=== PATIENT | female | born 1955 ===

== ENCOUNTER 2019-10-28 21:54 | Inpatient (IN) | payer OTHER ==
[~2019-10-28] VITALS: Ht 160 cm; Wt 75.0 kg
[2019-10-28] MEDS ORDERED: DEPAKOTE DR500 MG PO (22:19)
[2019-10-28] MEDS ORDERED: SPS 15 GM/15 GM/60 M PO (22:20)
[2019-10-28] MEDS ORDERED: LIPITOR40 MG PO (22:22)
[2019-10-28] MEDS ORDERED: METFORMIN HYD1000 MG PO (22:22)
[2019-10-28] MEDS ORDERED: COLCHICINE0.6 M1 PO (22:23)
[2019-10-29] MEDS ORDERED: LITHIUM CARBON300 MG PO (00:48)
[2019-10-29] MEDS ORDERED: CLONAZEPAM0.5 M2 PO (00:48)
[2019-10-29] MEDS ORDERED: TRAZODONE100 MG PO (00:49)
[2019-10-29] MEDS ORDERED: BRIMONIDINE TART5 ML OPH (00:50)
[2019-10-29] MEDS ORDERED: 'CLONIDINE0.1 MG PO (00:50)
[2019-10-29] MEDS ORDERED: VITAMIN D250 MCG PO (00:53)
[2019-10-29] MEDS ORDERED: LABETALOL HCL200 MG PO (00:54)
[2019-10-29] MEDS ORDERED: LASIX20 MG PO (00:55)
[2019-10-29] MEDS ORDERED: JANUVIA100 MG PO (00:56)
[2019-10-29] MEDS ORDERED: DEPAKOTE250 MG PO (00:57)
--- NOTE | 2019-10-29 02:00 | NUR ---
LORI THURSTON a 64 year old F admitted via stretcher from the ADMITTING as a emergency 72 hr. hold admission. Arrived on unit at 0200AM. ALLERGIES: IBUPROFEN, JAVAN INHIBITOR,LATUDA. Vital signs are: 98.6-110-18 156/79. CLIENT IS PINK SLIPPED AND REFUSED TO REVIEW OR SIGN ANY OTHER PAPERS. IN : Authorization For The Release of Medical Information, Clothing List, Consent to Voluntary Admission and Hospitalization, Consent and Release Forms/Receipt of Rights, Acknowledgement of Advance Directive Information, Behavioral Health Consent Form, and Informed Consent of Medications. Admitted under the services of Dr. HARJIT REYES,[facility]. A search was conducted and hazardous articles were removed. Client was oriented to the unit. GREG GONZALEZ
--- NOTE | 2019-10-29 02:00 | NUR ---
LORI THURSTON a 64 year old F admitted via stretcher from the ADMITTING as a emergency 72 hr. hold admission. Arrived on unit at 0200AM. ALLERGIES: IBUPROPHEN, JAVAN INHIBITORS, LATUDA. Vital signs are: 98.6-110-18 156/79. The client signed the following forms with stated understanding: Authorization For The Release of Medical Information, Clothing List, Consent to Voluntary Admission and Hospitalization, Consent and Release Forms/Receipt of Rights, Acknowledgement of Advance Directive Information, Behavioral Health Consent Form, and Informed Consent of Medications. Admitted under the services of Dr. HARJIT REYES,[facility]. A search was conducted and hazardous articles were removed. Client was oriented to the unit. GREG GONZALEZ
[2019-10-29] MEDS ORDERED: TIMOLOL MALEATE5 M7 OP (02:12)
[2019-10-29] MEDS ORDERED: OMEGA-31000 M1 PO (02:16)
[2019-10-29] MEDS ORDERED: LANTUS SOL100 UNIT/1 SC (02:17)
[2019-10-29] MEDS ORDERED: AMMONIUM LACTA227 GM T (02:18)
[2019-10-29] MEDS ORDERED: XALATAN 0.005%2.5 ML OU (02:20)
[2019-10-29] MEDS ORDERED: RISPERDAL1 M1 PO (02:22)
[2019-10-29] MEDS ORDERED: RISPERDAL CON12.5 MG IM (02:23)
[2019-10-29 02:24] VITALS: BP 156/79
--- NOTE | 2019-10-29 02:28 | NUR ---
LORI THURSTON a 64 year old F admitted via stretcher from the ADMITTING as a emergency 72 hr. hold admission. Arrived on unit at 0200AM. ALLERGIES: IBUPROPHEN, JAVAN INHIBITORS, LATUDA. Vital signs are: 98.6-110-18 156/79. The client signed the following forms with stated understanding: Authorization For The Release of Medical Information, Clothing List, Consent to Voluntary Admission and Hospitalization, Consent and Release Forms/Receipt of Rights, Acknowledgement of Advance Directive Information, Behavioral Health Consent Form, and Informed Consent of Medications. Admitted under the services of Dr. HARJIT REYES,[facility]. A search was conducted and hazardous articles were removed. Client was oriented to the unit. GREG GONZALEZ
--- NOTE | 2019-10-29 02:30 | NUR ---
DR Ana RYDER NOTIFIED OF ADMISSION
[2019-10-29 02:45] VITALS: BP 156/79
--- NOTE | 2019-10-29 02:51 | NUR ---
LORI THURSTON [id number] Please refer to the physician's history and physical for past medical history, comorbid conditions, and allergies. Diagnosis: SCHIZOEFFECTIVE DISORDER Scott Score: 22,LOW OR NO RISK WOUND DESCRIPTIONS: Nurse caring for patient states that she had wraps to bilateral lower extremities and refused for them to be removed and only wanted the doctor to look at them. This nurse went to evaluate patient and patient stated I was able to remove the dressings. After removal of dressing to bilateral lower extremities 4 wounds noted at this time. Wound Number: 1 Location of the wound: medial aspect of left lower extremity Thickness: Full Size: 2.2cm x 2.5cm x 0.1cm Tunneling: none Undermining: none Sinus Tract: none Presence of Exudate: Serosanguineous Amount: Light Color: Red Odor: None Periwound Skin Appearance: Edema Wound edges: approximated Pain (associated with wound): none at time of assessment How does patient state this happened? pt states she has had these for a while and uses cream on them Wound Number: 2 Location of the wound: lateral aspect of right lower extremity (right side) Type of wound: Thickness: Full Size: 0.9cm x 1.5cm x 0.1cm Tunneling: none Undermining: none Sinus Tract: none Presence of Exudate: Serosanguineous Amount: Light Color: Red, yellow Odor: None Periwound Skin Appearance: Edema Wound edges: approximated Pain (associated with wound): none at time of assessment How does patient state this happened? pt states she has had these for a while and uses cream on them Wound Number: 3 Location of the wound: lateral aspect of right lower extremity (middle wound) Thickness: Full Size: 1.5cm x 0.6cm x 0.1cm Tunneling: none Undermining: none Sinus Tract: none Presence of Exudate: Serosanguineous Amount: Light Color: Red, yellow Odor: None Periwound Skin Appearance: Edema Wound edges: approximated Pain (associated with wound): none at time of assessment How does patient state this happened? pt states she has had these for a while Wound Number: 4 Location of the wound: lateral aspect of right lower extremity (left wound) Thickness: Full Size: 0.7cm x 0.5cm x 0.1cm Tunneling: none Undermining: none Sinus Tract: none Presence of Exudate: Serosanguineous Amount: Light Color: Red, yellow Odor: None Periwound Skin Appearance: Edema Wound edges: approximated Pain (associated with wound): none at time of assessment How does patient state this happened? pt states she has had these for a while and uses cream on them and uses cream on them Surface the patient is resting on: Proform SKIN PREVENTION RECOMMENDATION: 1. Pressure redistribution support surface as appropriate 2. Elevate heels 3. Remove boots/TEDS every shift and reapply 4. Head of bed 30 degrees as tolerated 5. Assess nutrition and hydration 6. Manage moisture 7. Avoid the use of containment devices while in bed 8. Use absorptive products on surfaces limit layers of linens on bed 9. Turn and reposition every 1-2 hours in bed and every 1 hour in chair as tolerated 10. Weight shifts every 15 minutes while up in chair 11. Offloading with pillows or device to keep heels elevated off bed 12. Monitor skin at least every shift 13. Inspect under medical devices twice a day WOUND TREATMENT RECOMMENDATIONS: Full thickness guidelines: Cleanse areas to right and left lower extremity with nss and apply sureprep around the wound therahoney to wound bed and cover with optifoam gentle every 2 days and prn for soiling. Heel raiser pro boots to bilateral feet while in bed. Wheelcushion when oob for prevention Cleanse periarea and buttocks with soap and water and apply hydraguard every shift and prn for soiling for prevention. Venous and arterial studies of bilateral lower extremites. Consult podiatry for possible debridement if studies allow.
[2019-10-29 03:10] LABS: BACTERIA TRACE; BILIRUBIN NEGATIVE (NEGATIVE); BLOOD NEGATIVE (NEGATIVE); CLARITY CLEAR (CLEAR); COLOR YELLOW (YELLOW); GLUCOSE NEGATIVE (NEGATIVE); KETONE NEGATIVE (NEGATIVE); LEUKO ESTERASE TRACE (NEGATIVE); NITRITE NEGATIVE (NEGATIVE); UROBILINOGEN 0.2 E.U./dl (0.2-1.0)
--- NOTE | 2019-10-29 03:28 | NUR ---
DR RYDER ON UNIT TO SEE PT FOR MEDICAL CONSULT
--- NOTE | 2019-10-29 03:31 | NUR ---
PT ELATED ON ARRIVAL TO UNIT. SPEAKING TURKISH, BELARUSIAN & BELARUSIAN. STATED TURKISH IS HER MAIN LANGUAGE. FLIGHT OF IDEAS, NONSENSICAL SPEECH, CURSING. ALERT TO PERSON, MONTH, YEAR & STATED NAME OF PRESIDENT IS "KORIN BLACK". PT STATED SHE WANTS TO GET OUT OF HERE. WHILE GETTING OFF OF THE STRETCHER, SHE STATED THAT SHE IS READY TO DANCE ALL NIGHT & PUT HER HANDS IN THE AIR & DID DANCE MOVEMENTS. PT HAD SEVERAL RINGS, BRACELETS & NECKLACES ON & REQUIRED MUCH ENCOURAGEMENT TO REMOVE THEM. SHE MADE CLENCHED FISTS & STATED SHE WAS NOT TAKING HER JEWELRY OFF. MUCH PROMPTING REQUIRED. PT DID REMOVE SOME OF JEWELRY. SHE DID KEEP 4 RINGS & 1 BRACELET ON. SHE WAS NOTED TO HAVE BOTH OF HER LOWER LEGS WRAPPED & REFUSED TO LET THIS RN UNWRAP THEM FOR ASSESSMENT. SHE STATED THAT SHE WANTED A DR. TO LOOK AT THEM. WAS CONTINENT OF URINE PRIOR TO GOING TO BED.
--- NOTE | 2019-10-29 05:29 | NUR ---
Dr. Shay notified of wound care recommendations.
--- NOTE | 2019-10-29 06:34 | NUR ---
AM BEDSIDE GLUCOSE 203
[2019-10-29 06:38] LABS: BASO % 0.3 % (0.0-1.0); EOS # 0.2 10*3/uL (0.0-0.4); EOS % 3.4 % (1.0-4.0); LYMPH # 2.5 10*3/uL (1.3-4.4); LYMPH % 38.7 % (27.0-41.0); MEAN CELL VOLUME 83.5 fl (81.0-99.0); MEAN CORPUSCULAR HGB 27.2 pg (27.0-31.0); MEAN CORPUSCULAR HGB CONC 32.6 g/dl (33.0-37.0); MEAN PLATELET VOLUME 8.8 fl (9.6-12.3); MONO # 0.5 10*3/uL (0.1-1.0); NEUT # 3.2 10*3/uL (2.3-7.9); NEUT % 49.4 % (47.0-73.0); PLATELET COUNT AUTOMATED 240 10*3/uL (130-400); RED BLOOD COUNT 4.19 10*6/uL (4.10-5.10); WHITE BLOOD COUNT 6.5 10*3/uL (4.8-10.8)
[2019-10-29 06:54] LABS: ALBUMIN 3.1 gm/dl (3.1-4.5); BUN 16 mg/dl (7-24); CHLORIDE 106 mmol/L (98-107); HDL CHOLESTEROL 68 mg/dl (40-60); POTASSIUM 4.9 mmol/L (3.5-5.1); SODIUM 138 mmol/L (136-145)
[2019-10-29 07:06] LABS: ALKALINE PHOSPHATASE 76 U/L (45-117); CHOLESTEROL 187 mg/dL (<200); CREATININE 0.89 mg/dL (0.55-1.02); LDL CHOLESTEROL 100 mg/dL (9-159); SGOT/AST 15 IU/L (3-35); SGPT/ALT 22 U/L (12-78); TOTAL PROTEIN 7.1 gm/dL (6.4-8.2); TRIGLYCERIDES 96 mg/dl (<150); VLDL CHOLESTEROL 19 mg/dL (6-40)
[2019-10-29 07:52] VITALS: BP 146/73
[2019-10-29 08:08] LABS: VITAMIN D, 25-HYDROXY 71.2 ng/mL (30-100)
--- NOTE | 2019-10-29 08:21 | NUR ---
Patient eating breakfast in dining room with peers. Respirations easy and regular. Vital signs stable. No overt distress. MELITA HODGES & updated on pt progress.
--- NOTE | 2019-10-29 08:30 | NUR ---
Treatment Plan meeting was held via telephone with Dr. Chiu, DANIAL Lao, HELEN, PROVIDER NETWORK MANAGER-S and Jet Dyeing Machine Operator. Plan for discharge Next week. Pt. came to [facility] from Home with Mother.
--- NOTE | 2019-10-29 09:20 | NUR ---
PHYSICAL THERAPY Physical Therapy evaluation completed on 3N with full evaluation to follow. Low complexity PT evaluation per chart review and evaluation, [id number]. Recommend physical therapy per plan of care and Home health with 24hr care and assist upon discharge. Thank you for this referral. Stephanie Scott,PT,DPT
--- NOTE | 2019-10-29 10:00 | NUR ---
Occupational Therapy evaluation completed on 3N with full evaluation to follow. Recommend occupational therapy per plan of care and return home with home health and 25 hr supervision upon discharge. Thank you for this referral. Elizabeth Verde OTR/L
--- NOTE | 2019-10-29 15:19 | NUR ---
Shift chart check completed.
--- NOTE | 2019-10-29 18:17 | NUR ---
PT IS ALERT AND ORIENTED TO PERSON, STATES SHE KNOWS SHE IS IN THE HOSPITAL TO GET HELP. MOOD LABILE, AFFECT ANIMATED AT TIMES. SPEECH IS SOFT, RAPID, DISJOINTED WITH FLIGHT OF IDEAS NOTED. FREQUENTLY TALKING ABOUT BIRDS. PT OFTEN SPEAKING IN SHORT PHRASES OF OTHER LANGUAGES SUCH MALDIVIAN AND ARMENIAN. PT DENIES SI/HI, INTENT OR PLAN. PT HAS BEEN MEDICATION COMPLIANT WITHOUT DIFFICULTY. NO OVERT HALLUCINATIONS, PARANOIA OR DELUSIONS NOTED. PT REFUSED TO SPEAK WITH HER MOTHER ON THE PHONE OR ALLOW THIS NURSE TO DISCLOSE INFORMATION TO MOTHER, PT BECAME SLIGHTLY AGITATED AND REPEATEDLY STATED "NO, I DON'T KNOW HER. TELL HER BONJOUR. TELL HER SHE CAN KISS MY ASS". NO AGGRESSIVE BEHAVIORS DISPLAYED. NO DISTRESS NOTED. PLAN TO CONTINUE CURRENT TREATMENT.
[2019-10-29 20:00] VITALS: BP 141/84
--- NOTE | 2019-10-29 20:24 | NUR ---
24 HR chart check completed.
--- NOTE | 2019-10-30 01:33 | NUR ---
P-LABILE, MANIC BEHAVORS I-1:1 PROVIDED FOR VENTILATION OF FEELINGS. ADMINISTER MEDS, MONITOR SLEEP R-LABILE MOOD, MOSTLY ELATED WITH ANIMATED SINGING, LAUGHING & BEING VERY JOVIAL. IS MUCH CALMER THAN PREVIOUS NIGHT WHEN ADMITTED BY THIS RN. ALERT & ORIENTED TO PERSON, PLACE & TIME. AVOIDS SOME QUESTIONS & QUICKLY CHANGES TOPIC OF CONVERSATION WITH NON-SENSICAL SPEECH, FLIGHT OF IDEAS OR SPEAKS IN SERBIAN OR ITALIAN. WHEN INITIALLY ASKED WHERE SHE WAS, SHE STATED, "[place], [facility], [place]" & THEN BEGAN SINGING THE SONG, [facility] [place] [facility] MICHELLE, LAUGHED & STATED SHE WAS IN [place]. WHEN ASKED HOW SHE IS DOING THIS EVENING, SHE STATED, "ARE YOU CUTTIN THE FOOL?" LAUGHED IT OFF & & STATED "I'M DOIN REAL GOOD TORRES. REAL GOOD. BONJOUR'." DENIES SENSORY DISTURBANCE & NONE IS EVIDENT. DENIES SUICIDAL FEELINGS. PTS MOTHER DID CALL THE UNIT AGAIN IN AN ATTEMPT TO TALK TO HER & PT CONTINUED TO REFUSE TO TAKE HER CALL. NO AGITATION. ATE SNACK. HS BEDSIDE GLUCOSE 104. COMPLIANT WITH ALL HS MEDICATIOS. AMBULATES INDEPENDENTLY & ATTENDS TO OWN ADLS. P-CONTINUE TO MONITOR
--- NOTE | 2019-10-30 05:44 | NUR ---
PT HAS SLEPT APPROX 3 HOURS THROUGHOUT THE NIGHT. UP TALKING FREQUENTLY TO HER ROOM MATE DESPITE REDIRECTION.
--- NOTE | 2019-10-30 06:11 | NUR ---
Dr. Shay notified of wound care recommendations
--- NOTE | 2019-10-30 06:15 | NUR ---
PT AWAKE AT THIS TIME & STOPPED AT NURSES STATION SAYING GOOD MORNING. STARTED SWINGING HER HIPS & STATED, "BARAHONA, SHAKE YOUR BOOTIE & DO THE WOOCHI WOOCHI".
--- NOTE | 2019-10-30 06:39 | NUR ---
AM BEDSIDE GLUCOSE 131
--- NOTE | 2019-10-30 07:45 | NUR ---
PHYSICAL THERAPY Patient seen this am for therapy visit and was sitting up in activity room chair upon therapist arrival. Patient identified by name / and reports no new c/o's at this time. OT clinical assistant professor was present this morning for observation only as patient was Independent this session with all transfers / mobilty without AD. Patient demonstrated decreased B arm swing during gait ex, ambulating 100'x 2 to her room. Patient tolerated eyes open / closed without LOB and able walk backwards 4-5 step prior to returning to activity room chair. Patient remained in chair awaiting breakfast, under [facility] staff Supervision and will continue per POC as tolerated. Total treatment time 15 minutes. Dayton Hatch, IMPLANT POLISHER
--- NOTE | 2019-10-30 07:46 | NUR ---
OT NOTE Prior to coming to the floor spoke with nurse Hidalgo and reported that therapy was coming to the floor to treat this pt. Pt was seen this A.M. 1:1 for 15 minute OT session with OWNER CONSULTING ENGINEER and nursing staff present for observation only. Upon arrival pt was sitting upright in the dining tejeda. Pt identified by name and and had no complaints at this time. Sit to stand completed from chair level with supervision followed by functional mobility to the bathroom with supervision. There she transferred on/off standard commode with supervision. Clothing management completed with supervision and toilet hygiene completed with supervision while standing. Pt then stood sink side while washing her hands and face with supervision. Pt tolerated aprox 10 minutes of static standing before sitting due to fatigue. Functional mobility was then completed to the dining tejeda where she was left sitting upright under [facility] staff supervision. Continue with rec D/C plan to return home with 02/01 supervision. CHUCHO Simental/Shaunna
[2019-10-30 08:00] VITALS: BP 114/76
--- NOTE | 2019-10-30 08:15 | NUR ---
Treatment plan meeting was held via telephone with Dr. Chiu, DANIAL Lao, HELEN, MOTOR AND GENERATOR BRUSH CUTTER-S and Line Leader. Plan for discharge Next week. Pt. will return home with her Mother.
--- NOTE | 2019-10-30 17:19 | NUR ---
PT A&O X3. PT REMAINS MANIC WITH SINGING, DANCING, AND HYPERVERBAL. INTERACTIVE AND PARTICIPATING. EUTHYMIC MOOD. FOI NOTED. NO HALLUCINATIONS OR DELUSIONS NOTED. AMBULATORY WITH A STEADY GAIT. BEHAVIORS MONITORED WITH Q15 MINUTE SAFETY CHECKS. MEDICATION COMPLIANT WITHOUT DIFFICULTY.
[2019-10-30 20:00] VITALS: BP 132/61
--- NOTE | 2019-10-31 00:41 | NUR ---
P-LABILE, FOI I-ASSESS ORIENTATION, MOOD, AND BEHAVIOR. PROVIDE 1:1 WITH THERAPEUTIC INTERVENTIONS. ENCOURAGE MEDICATION COMPLIANCE AND EDUCATE. MONITOR SLEEP. R-PATIENT ALERT AND ORIENTED X3 WITH CONFUSION. PT SINGING AND DANCING THIS HS, PLEASANT, INTERACTIVE WITH STAFF. PT HYPERVERBAL WITH FOI, NONSENSICAL AT TIMES. INTERMITTENT IRRITABILITY/YELLING OUT NOTED WHEN APPROACHED BY PEERS STATING "THEY NEED TO GROW UP". EASILY REDIRECTED. PT VOICES NO SI/HI, HALLUCINATIONS, OR DELUSIONS. NO NOTED RESPONDING TO INTERNAL STIMULI. MEDICATION COMPLIANT WITHOUT DIFFICULTY AFTER REVIEW. NO PHYSICAL COMPLAINTS NOTED. PT AMBULATORY WITH A STEADY GAIT, INDEPENDENT IN ADL'S WITH PROMPTING, CONTINENT OF BOWEL AND BLADDER. P-CONTINUE TO MONITOR MOOD AND BEHAVIORS. MAINTAIN Q 15 MIN CHECKS AND PRN FOR SAFETY.
--- NOTE | 2019-10-31 05:29 | NUR ---
24 HOUR CHART CHECK COMPLETED.
--- NOTE | 2019-10-31 05:38 | NUR ---
PT OBSERVED ON Q 15 MIN CHECKS TO HAVE SLEPT APPROX 5 HOURS UNINTERRUPTED. NO SIGNS OR SYMPTOMS OF DISTRESS NOTED.
[2019-10-31 06:18] VITALS: BP 136/72
--- NOTE | 2019-10-31 07:10 | NUR ---
PHYSICAL THERAPY Patient seen this am for therapy visit and was sitting up in activity room chair upon therapist arrival. Patient identified by name / and reports no c/o's pain at this time. Patient also presents with increased B foot edema and calista wrap edema support. OT family service assistant was present for observation only this session as patient was Independent with all transfers. Patient ambulated without AD, ad genny in hallway to her room, 75'x 2, demonstrating slow stephy, "shuffling" gait pattern. Patient returned to activity room chair with no LOB and remained under [facility] staff Supervision. Will continue per POC as tolerated, total treatment time 16 minutes. Dayton Hatch, BAR ATTENDANT
--- NOTE | 2019-10-31 07:15 | NUR ---
OT NOTE Prior to coming to the floor spoke with nurse Trujillo and reported that therapy was coming to the floor to treat this pt. Pt was seen this A.M. 1:1 for 15 minute OT session with HYDROGENATION OPERATOR and nursing staff present for observation only. Sit to stand completed from chair level with supervision followed by functional mobility to the bathroom with supervision. There she transferred on/off standard commode and completed all clothing management with supervision. Challenged pt's dynamic standing tolerance needed for increased I in self care tasks and functional transfers, pt was able to tolerate aprox 8 minutes at a time before sitting due to fatigue. Pt was left sitting upright in the dining tejeda under [facility] staff supervision. Continue with rec D/C plan to return home with 02/01 supervision. CHUCHO Simental/Shaunna
--- NOTE | 2019-10-31 07:32 | NUR ---
Late Entry: Pt friendly and talkative with this newspaper writer yesterday AM. Pt was intrusive toward other pts but did attempt to be supportive toward them.
--- NOTE | 2019-10-31 08:15 | NUR ---
Treatment Plan meeting was held via telephone with Dr. Chiu RN, OPERATIONS MANAGEMENT TRAINEE-S and Biological Sciences Professor. Plan for discharge Next Week. Pt. will return home at discharge with her Mother.
--- NOTE | 2019-10-31 10:46 | NUR ---
DR IVORY AND TEAM ON UNIT TO ASSESS PT, UPDATE PROVIDED.
--- NOTE | 2019-10-31 13:49 | NUR ---
P- Flight of Ideas, Hyperverbal, Labile, Confusion noted at times. I- Assess mood, orientation, SI/HI, hallucinations, delusions or pain. Provide reorientation when confusin is noted. Provide medications on time with education on each. 1:1 therapeutic intervention provided when necessary. Redirection provided. R- Patient is alert to person and time. Patient thought that she was in [place]. Reorientation effective. Mood labile, mostly pleasant and joking. Patient becomes irritable with other patients at times, redirection effective. Denies SI/HI, hallucinations, or pain. No s/s of interacting with internal stimuli; no delusional or paranoid thought process noted. No s/s of distress noted, resps even and unlabored on room air. Eating and drinking adequately. Medication compliant. Patients is interactive, intrussive at times. Flight of ideas remain and hyperverbal. Patients speech becomes slurred at times due to patient talking so fast. Gait steady while ambulating. P- Assess mood, orientation, SI/HI, hallucinations, delusions or pain every shift. Reorient, reassure, 1:1 interaction provided when necessary. Provide medications on time with education on each. Provide reorientation when confusion is noted. Q15 minute checks maintained for safety.
--- NOTE | 2019-10-31 15:33 | NUR ---
Pt continues to be hypeverbal. However, this caption writer did observe pt sitting for short periods of time in silence in the activity room. Pt was pleasant during interaction with this caption writer. Pt did state at one time, "My sister is bat shit crazy. She needs locked up." Pt then walked away laughing.
--- NOTE | 2019-10-31 17:26 | NUR ---
Invega 234mg given in the R Deltoid at this time. Patient tolerated procedure well.
[2019-10-31 20:00] VITALS: BP 130/60
--- NOTE | 2019-11-01 01:26 | NUR ---
P-FOI I-ASSESS ORIENTATION, MOOD, AND BEHAVIOR. PROVIDE 1:1 WITH THERAPEUTIC INTERVENTIONS. ENCOURAGE MEDICATION COMPLIANCE AND EDUCATE. MONITOR SLEEP. R-PATIENT ALERT AND ORIENTED X3 WITH CONFUSION. PT EUTHYMIC THIS HS, PLEASANT, INTERACTIVE. PT NOTED TO BE LESS HYPER VERBAL WITH FOI THAN THE PREVIOUS SHIFT THIS RN WORKED. ATE SNACK. WATCHED A MOVIE WITH PEERS. NO AGITATION NOTED. PT SPOKE TO BROTHER SUDARSHAN THIS HS, BUT CONTINUES TO REFUSED PHONE CALLS FROM HER MOTHER STATING "NOPE, CALL THE [facility]". PT VOICES NO SI/HI, HALLUCINATIONS, OR DELUSIONS. NO NOTED RESPONDING TO INTERNAL STIMULI. MEDICATION COMPLIANT WITHOUT DIFFICULTY AFTER REVIEW. NO PHYSICAL COMPLAINTS VOICED. PT AMBULATORY WITH A STEADY GAIT, INDEPENDENT IN ADL'S, CONTINENT OF BOWEL AND BLADDER. NO DISTRESS NOTED. P-CONTINUE TO MONITOR MOOD AND BEHAVIORS. MAINTAIN Q 15 MIN CHECKS AND PRN FOR SAFETY.
--- NOTE | 2019-11-01 05:47 | NUR ---
24 HOUR CHART CHECK COMPLETED.
--- NOTE | 2019-11-01 05:54 | NUR ---
PATIENT OBSERVED ON Q 15 MIN CHECKS TO HAVE SLEPT APPROX 4.5 HOURS UNINTERRUPTED. NO DISTRESS NOTED.
--- NOTE | 2019-11-01 07:05 | NUR ---
PHYSICAL THERAPY Patient seen this am for therapy visit and was standing in her room with OT marketing assistant manager upon therapist arrival. Patient identified by name / and voices no new c/o's at this time. Patient ambulates without use of AD, ad genny in hallway, [facility], demonstrating "shuffling" gait pattern and decreased stride. Patient still presents with increased B Dorsum of feet edema, however no c/o of pain. Patient total gait distance 70'x 1, while needing v/c to increase stride / B heel strike. Patient returned to activity room chair and performed several seated B LE therex, x 10 reps each without c/o. Patient remained in chair at table awaiting breakfast, under [facility] staff Supervision. Will continue per POC as tolerated, total treatment time 16 minutes. Dayton Hatch, TUGBOAT MATE
--- NOTE | 2019-11-01 07:15 | NUR ---
OT NOTE Prior to coming to the floor spoke with nurse Gusman and reported that therapy was coming to the floor to treat this pt. Pt was seen this A.M. 1:1 for 15 minute OT session with INJECTION MOLDING MACHINE OPERATOR and nursing staff present for observation only. Upon arrival pt was supine in bed. Pt identified by name and and had no complaints at this time. Pt transferred supine to sit EOB with supervision. While sitting EOB pt donned pants with supervision. Sit to stand then completed from the bed level with supervision. Challenged pt's dynamic standing balance while weight shifting, crossing midline, and reaching over all planes. Pt was able to maintain G- standing balance throughout. Functional mobility was then completed from her room to the dining tejeda with supervision where she was left sitting upright under [facility] staff supervision. Continue with rec D/C plan to home with return home with 02/01 supervision. CHUCHO Simental/Shaunna
[2019-11-01 07:53] VITALS: BP 122/88
--- NOTE | 2019-11-01 08:09 | NUR ---
Patient eating breakfast in dining room with peers. Respirations easy and regular. Vital signs stable. No overt distress. GARRETT Faust, assessed pt via telehealth. Updates provided. MORALES ONEIL
--- NOTE | 2019-11-01 08:15 | NUR ---
Treatment Plan meeting was held via telephone with Dr. Chiu, DANIAL Lao, HELEN, GRID INSPECTOR-S and Crystal Evaluator. Plan for discharge Next week. Pt. will return Home with her Mother.
--- NOTE | 2019-11-01 09:31 | NUR ---
AM GROUP "CRAFTING". PT WAS PRESENT FOR AM GROUP, BUT DECLINED TO PARTICIPATE.
--- NOTE | 2019-11-01 10:38 | NUR ---
DR. LAWSON FROM PODIATRY ON UNIT TO CHANGE PATIENT'S DRESSINGS TO BLE. PT TOLERATED WELL.
--- NOTE | 2019-11-01 11:19 | NUR ---
PHYSICAL THERAPY CO-SIGN I approve of the Physical Therapy notes written above. Monique Oden PT
--- NOTE | 2019-11-01 11:20 | NUR ---
PHYSICAL THERAPY CO-SIGN I approve of the Physical Therapy notes written above. Monique Oden PT
--- NOTE | 2019-11-01 12:20 | NUR ---
OCCUPATIONAL THERAPY CO-SIGN I approve of the Occupational Therapy notes written above. STEWART NOWAK, OTR/L
--- NOTE | 2019-11-01 13:52 | NUR ---
PM GROUP MOVIE TIME- PT PRESENT DURING GROUP TIME.
[2019-11-01 20:00] VITALS: BP 129/58
--- NOTE | 2019-11-02 01:30 | NUR ---
P-HYPERVERBAL, EUPHORIC I-REDIRECTION WITH 1:1 THERAPEUTIC INTERVENTIONS AND PRESENT REALITY. EDUCATE AND ENCOURAGE MEDICATION COMPLIANCE. R-PATIENT MEDICATION COMPLIANT AT HS. PATIENT PROVIDED NOURISHMENT AND FLUIDS AT HS. PATIENT WITH NO SUICIDAL OR HOMICIDAL IDEATIONS. PATIENT WITH NO DELUSIONS OR HALLUCINATIONS AT THIS TIME. PATIENT HYPERVERBAL IN DINING AREA AND WITH FLIGHT OF IDEAS. PATIENT IN EUPHORIC MOOD AND SINGS A SONG ABOUT OR MAKING REFERENCES TO SONGS ABOUT WHAT IS HEARD OR SEEN. PATIENT INTERMITTENTLY SINGING "IF YOU WANT IT, COME AND GET IT". PATIENT ALSO SEEN A NURSES SHOES AND STATING "THAT'S PURPLE RAIN". P-CONTINUE TO ENCOURAGE MEDICATION COMPLIANCE, CONTINUE TO PRESENT REALITY, ENCOURAGE GROUP THERAPY WHILE AWAKE
--- NOTE | 2019-11-02 05:25 | NUR ---
PATIENT SLEPT 6 HOURS OF INTERRUPTED SLEEP THROUGHOUT SHIFT. Q 15 MINUTE CHECKS MAINTAINED. 24 HR chart check completed.
[2019-11-02 07:54] VITALS: BP 117/62
[2019-11-02 19:54] VITALS: BP 120/62
--- NOTE | 2019-11-02 23:58 | NUR ---
P-HYPERVERBAL I-REDIRECTION WITH 1:1 THERAPEUTIC INTERVENTIONS AND PRESENT REALITY. EDUCATE AND ENCOURAGE MEDICATION COMPLIANCE. R-PATIENT MEDICATION COMPLIANT AT HS. PATIENT PROVIDED NOURISHMENT AND FLUIDS AT HS. PATIENT WITH NO SUICIDAL OR HOMICIDAL IDEATIONS. PATIENT WITH NO DELUSIONS OR HALLUCINATIONS AT THIS TIME. PATIENT HYPERVERBAL AND IRRITABLE AT TIMES WITH PEERS IN DINING AREA. P-CONTINUE TO ENCOURAGE MEDICATION COMPLIANCE, CONTINUE TO PRESENT REALITY, ENCOURAGE GROUP THERAPY WHILE AWAKE
--- NOTE | 2019-11-03 05:46 | NUR ---
PATIENT SLEPT 5 HOURS OF INTERRUPTED SLEEP THROUGHOUT SHIFT. Q 15 MINUTE CHECKS MAINTAINED. 24 HR chart check completed.
--- NOTE | 2019-11-03 07:53 | NUR ---
Patient eating breakfast in dining room with peers. Respirations easy and regular. Vital signs stable. No overt distress. MELITA HODGES
[2019-11-03 08:00] VITALS: BP 113/59
--- NOTE | 2019-11-03 10:30 | NUR ---
on unit to see pt at this time.
--- NOTE | 2019-11-03 12:31 | NUR ---
Invega Sustenna 156mg IM given to right deltoid at this time. Pt tolerated well, expressed understanding of rationale behind medication and took injection willingly. Pt states "that's fantastic".
--- NOTE | 2019-11-03 18:55 | NUR ---
P- FLIGHT OF IDEAS, HYPERVERBAL, IRRITABLE WITH FEMALE PEER I- ORIENTATION, MOOD AND BEHAVIORS ASSESSED. ASSESSED PT FOR SI/HI, INTENT OR PLAN. ASSESSED PT FOR S/S HALLUCINATIONS, PARANOIA AND/OR DELUSIONS. MEDICATIONS ADMINISTERED PER PHYSICIAN'S ORDERS. ASSISTANCE WITH ADL CARE PROVIDED NEEDED. ENCOURAGED PT TO ATTEND AND PARTICIPATE IN [facility] GROUPS AND ACTIVITIES. R- PT IS ALERT AND ORIENTED WITH CONFUSION NOTED. MEMORY APPEARS TO BE INTACT. RESPS EASY AND EVEN ON ROOM AIR. MOOD LABILE, PT BECOMES EASILY IRRITABLE WITH FEMALE PEER, REQUIRING FREQUENT REDIRECTION THROUGHOUT THE SHIFT. PT DENIES SI/HI, INTENT OR PLAN. NO PARANOIA OR DELUSIONS NOTED. PT STATED SHE SEES BIRDS AND A "GREEN SIGN FOR " OUT THE WINDOW. NO SUCH SIGN OR BIRD WAS NOTED BY THIS RN. PT REMAINS HYPERVEBAL WITH FLIGHT OF IDEAS AND LOOSE ASSOCIATIONS NOTED. PT BREAKS OUT INTO RANDOM SONG, FREQUENTLY SINGING "TAKE IT TO THE LIMIT! CAN I GET A WITNESS?1" MED COMPLIANT WITHOUT DIFFICULTY. NO DISTRESS NOTED. P- PLAN TO CONTINUE CURRENT TX, CONTINUE TO MONITOR MOOD AND BEHAVIORS, PROVIDE APPROPRIATE REORIENTATION, REDIRECTION AND 1:1 NEEDED. CONTINUE TO ENCOURAGE MED COMPLIANCE WELL GROUP ATTENDANCE AND PARTICIPATION.
[2019-11-03 20:00] VITALS: BP 112/66
--- NOTE | 2019-11-03 22:55 | NUR ---
P-LABILE, FOI I-ASSESS ORIENTATION, MOOD, AND BEHAVIOR. PROVIDE 1:1 WITH THERAPEUTIC INTERVENTIONS. ENCOURAGE MEDICATION COMPLIANCE AND EDUCATE. MONITOR SLEEP. R-PATIENT ALERT AND ORIENTED X3 WITH CONFUSION. PT REMAINS HYPERVERBAL WITH FOI, NONSENSICAL AT TIMES. PT WITH INTERMITTENT IRRITABILITY/YELLING OUT NOTED WHEN APPROACHED BY CERTAIN PEERS, EASILY REDIRECTABLE NEEDED. PT OTHERWISE CALM, PLEASANT, INTERACTIVE WITH STAFF. PT VOICES NO SI/HI, HALLUCINATIONS, OR DELUSIONS. NO NOTED RESPONDING TO INTERNAL STIMULI. PT MEDICATION COMPLIANT WITHOUT DIFFICULTY AFTER REVIEW. NO PHYSICAL COMPLAINTS NOTED. PT AMBULATORY WITH A STEADY GAIT, INDEPENDENT IN ADL'S, CONTINENT OF BOWEL AND BLADDER. P-CONTINUE TO MONITOR MOOD AND BEHAVIORS. MAINTAIN Q 15 MIN CHECKS AND PRN FOR SAFETY.
--- NOTE | 2019-11-04 05:28 | NUR ---
24 HOUR CHART CHECK COMPLETED.
--- NOTE | 2019-11-04 05:46 | NUR ---
PATIENT OBSERVED ON Q 15 MIN CHECKS TO HAVE SLEPT APPROX 3 HOURS INTERRUPTED. NO DISTRESS NOTED.
[2019-11-04 06:09] VITALS: BP 124/68
--- NOTE | 2019-11-04 10:53 | NUR ---
DR IVORY ON UNIT TO ASSESS PT, UPDATE PROVIDED.
--- NOTE | 2019-11-04 13:10 | NUR ---
P: LABILE MOOD, IRRITABLE, ANGRY, DEMANDING, YELLING AT STAFF, ATTEMPTING TO GET OUT OF DOUGLAS CHAIR. ACTING OUT WHEN TAKEN INTO DINNING ROOM WITH OTHER PATIENTS. MANIPULATIVE WITH STAFF. WHEN PATIENT DOESN'T GET HIS WAY HE STATED THE FOLLOW "I'LL HURT MYSELF, YOU JUST WATCH" INFORMED NORI, NURSE PRACTITIONER- DENIES HI/SI. ADMITS TO BEING DEPRESSED. VERBALLY AGGRESSIVE WITH NURSE. ATTEMPTED TO REFUSE MEDICATION. I: ONE ON ONE, REDIRECTION, CONTRACT FOR SAFETY, SPACE PROVIDED. R: EFFECTIVE. PATIENT APOLOGIZED FOR HIS BEHAVIORS AFTER PROVIDING SPACE. PATIENT IS ALERT AND ORIENT TO PERSON, PLACE, TIME AND SITUATION. ABLE TO VOICE NEEDS. MOOD IS DEPRESSED, LABILE MOOD. REAPPROACHED WITH MEDICATION AND COMPLAINT. EDUCATION PROVIDED. Q 15 MINUTE SAFETY CHECKS MAINTAINED. 2 PERSON ASSIST WITH ACTIVITIES OF DAILY LIVING, CONTINENT OF BOWEL AND BLADDER. SET UP FOR MEALS, INTACTS ARE GOOD WITH ADEQUATE FLUIDS. UP IN DOUGLAS CHAIR FOR COMFORT. AFTER LUNCH PATIENT ASSISTED TO BED. COMPLAINT WITH SECOND APPROACH TO GET LABS DRAWN. INTERACTIVE WITH STAFF, IN DINING ROOM WITH OTHER PATIENT; NO OUTBURST WHILE IN DINING ROOM WITH OTHER PATIENTS. P: CONTINUE TO MONITOR FOR MOOD, SUICIDAL IDEATIONS, ATTEMPTS TO HURT SELF AND MEDICAITON COMPLAINCE. PROVIDE ONE ON ONE FOR EMOTIONAL SUPPORT. REDIRECTION, 2 PERSON ASSIST AT ALL TIMES DUE TO BEING ACCUSTORY OF STAFF.
--- NOTE | 2019-11-04 14:34 | NUR ---
P: RESPONDING TO INTERNAL STIMULI, SITTING IN ROOM TALKING TO SELF. MEDICATION NON COMPLIANCE. DURING PATIENT INTERACTION, PATIENT RESPONDING TO QUESTIONS WITH INAPPROPRIATE LAUGHTER. HYPER VERBAL WHEN TALKED TALKED TO. I: ONE ON ONE, REDIRECTION AND ENCOURAGE MEDICATION COMPLIANCE. R: EFFECTIVE. PATIENT IS ALERT TO PERSON, PLACE, TIME AND SITUATION. MOOD IS LABILE. DENIES ANY HALLUCINATIONS, DELUSIONS, HI/SI OR PAIN. RESPONDING TO INTERNAL STIMULI. 1 PERSON ASSIST WITH ACTIVITIES OF DAILY LIVING, CONTINENT OF BOWEL AND BLADDER. TOOK ALL MEDICATIONS EXCEPT DEPAKOTE. Q 15 MINUTE SAFETY CHECKS. P: CONTINUE TO MONITOR FOR MOOD CHANGES, HALLUCINATIONS AND MEDICATION COMPLAINCE. PROVIDE ONE ON ONE, REDIRECTION NEEDED.
[2019-11-04 20:00] VITALS: BP 148/66
--- NOTE | 2019-11-04 21:12 | NUR ---
REFUSED TO COME OUT OF ROOM, SPEECH REMAINS HYPERVERBAL. TOOK ALL MEDICATIONS EXCEPT DEKOTE WHICH SHE HAS BEEN DOING. STATES SHE AIN'T GOING AROUND THAT CRAZY GIRL. EMOTIONAL SUPPORT PROVIDED. WILL CONTINUE Q 15 MINUTE AND PRN MONITORING FOR SAFETY
--- NOTE | 2019-11-05 01:39 | NUR ---
OUT IN [place] YELLING ABOUT FEMALE PEER ALWAYS "IN HER FACE". SAYING I HATE HER AND SHE IS GOING TO pOINTING DOWN. DIFFICULT TO REDIRECT CLIENT. ASSISTED TO QUIET ROOM SHE WANTS TO LOOK OUT WINDOW.
--- NOTE | 2019-11-05 01:46 | NUR ---
APPEARS TO BE TALKING AND SEEING UNSEEN OTHERS
--- NOTE | 2019-11-05 01:46 | NUR ---
APPEARS TO BE TALKING AND SEEING UNSEEN OTHERS
--- NOTE | 2019-11-05 02:35 | NUR ---
PREOCCUPIED WITH FLUSHING TOILET. FLUSHES 5-7 TIMES EVERYTIME SHE GOES. VERY DIFFICULT TO REDIRECT. WILL CONTINUE TO MONITOR
--- NOTE | 2019-11-05 02:37 | NUR ---
PREOCCUPIED WITH FLUSHING TOILET. FLUSHES 5-7 TIMES EVERYTIME SHE GOES. VERY DIFFICULT TO REDIRECT. WILL CONTINUE TO MONITOR
--- NOTE | 2019-11-05 02:38 | NUR ---
24 HR chart check completed.
--- NOTE | 2019-11-05 06:30 | NUR ---
HAS BEEN AWAKE ALL NIGHT EITHER SINGING, FLUSHING TOILETS OR LOOKING FOR PEER TO YELL AT. CLIENT SLEPT ZERO HOURS. ALL ATTEMPTS AT RELAXATION UNSUCCESSFUL
--- NOTE | 2019-11-05 07:00 | NUR ---
PHYSICAL THERAPY Patient seen this am for therapy visit and was sitting in her room upon therapist arrival. Patient identified by name / and was very talkative this morning. OT laundry assistant was also present for observation only this session as patient was Independent with all transfers / mobilty. Patient ambulated 35'x 1 to Quiet room and performed seated B LE therex, all planes, x 15 reps each to increase LE strength secondary to c/o of LE weakness during gait ex. Patient also completed 5 consecutive sit to stand transfers in 13.85 seconds, B UE support, requiring v/c to complete full upright standing posture prior to sitting back down between reps. Patient unable to complete ex without B UE support secondary to POOR transfer technique. Patient ambulated additional 40'x 1 to activity room, no AD, and reamiend in chair at table awaiting breakfast, under [facility] staff Supervision. Will continue per POC as tolerated, total treatment time 18 minutes. Dayton Hatch, DINING SERVICE INSPECTOR
--- NOTE | 2019-11-05 07:15 | NUR ---
LORI THURSTON [id number] Please refer to the physician's history and physical for past medical history, comorbid conditions, and allergies. Diagnosis: SCHIZOEFFECTIVE DISORDER Scott Score: 22,LOW OR NO RISK WOUND DESCRIPTIONS: Wound Number: 1 Location of the wound: medial aspect of left lower extremity Thickness: Full Size: 1.2cm x 1.5cm x 0.1cm Tunneling: none Undermining: none Sinus Tract: none Presence of Exudate: Serosanguineous Amount: Light Color: Red Odor: None Periwound Skin Appearance: Edema Wound edges: approximated Pain (associated with wound): none at time of assessment How does patient state this happened? pt states she has had these for a while and uses cream on them Wound Number: 2 Location of the wound: lateral aspect of right lower extremity (right side) no open areas noted at time of asseessment. No drainage noted at time of assessment Wound Number: 3 Location of the wound: lateral aspect of right lower extremity (middle wound) no open areas noted at time of assessment. No draiange noted at time of assessment Wound Number: 4 Location: lateral apsect of right lower extremity (left wound) no open areas noted at time of assessment. No drainage noted at time of assessment Surface the patient is resting on: Proform SKIN PREVENTION RECOMMENDATION: 1. Pressure redistribution support surface as appropriate 2. Elevate heels 3. Remove boots/TEDS every shift and reapply 4. Head of bed 30 degrees as tolerated 5. Assess nutrition and hydration 6. Manage moisture 7. Avoid the use of containment devices while in bed 8. Use absorptive products on surfaces limit layers of linens on bed 9. Turn and reposition every 1-2 hours in bed and every 1 hour in chair as tolerated 10. Weight shifts every 15 minutes while up in chair 11. Offloading with pillows or device to keep heels elevated off bed 12. Monitor skin at least every shift 13. Inspect under medical devices twice a day WOUND TREATMENT RECOMMENDATIONS: D/C Full thickness guidelines: Cleanse areas to right and left lower extremity with nss and apply sureprep around the wound therahoney to wound bed and cover with optifoam gentle every 2 days and prn for soiling. Partial thickness guidelines: Cleanse medial aspect of left lower extremity with nss and apply sureprep around the wound hydrogel to wound bed and cover with optifoam gentle every 2 days and prn for soiling. Continue Heel raiser pro boots to bilateral feet while in bed. Continue Wheelcushion when oob for prevention Continue hydraguard to periarea and buttocks every shift and prn for soiling for prevention. Podiatry is already on consult
--- NOTE | 2019-11-05 07:15 | NUR ---
OT NOTE Prior to coming to the floor spoke with nurse Trujillo and reported that therapy was coming to the floor to treat this pt. Pt was seen this A.M. 1:1 for 20 minute OT session with IMPERSONATOR CHARACTER and nursing staff present for observation only. Upon arrival pt was sitting upright in the bedside chair in her bedroom. Pt identified by name and and had no complaints at this time. While seated pt donned B socks with supervision. Sit to stand completed from chair level I followed by functional mobility to the quiet room I. Challenged pt's dynamic standing tolerance needed for increased I in self care tasks and functional transfers and pt was able to tolerate aprox 8 minutes before sitting due to fatigue. Then challenged pt's dynamic standing balance while weight shifting, crossing midline, and reaching over all planes and pt was able to maintain F+/G- standing balance throughout. Throughout entire session pt presented with hyperverbal speech requiring verbal prompts for attention to tasks. Functional mobility was then completed back to the dining tejeda I where she was left sitting upright under [facility] staff supervision. Continue with rec D/C plan to return home with 02/01 supervision. CHUCHO Simental/Shaunna
[2019-11-05 07:46] VITALS: BP 149/73
--- NOTE | 2019-11-05 10:55 | NUR ---
Dr. Marshall notified of wound care recommendations.
--- NOTE | 2019-11-05 12:16 | NUR ---
P: HYPERVERBAL, SINGING RANDOMLY, REFUSING MEDICATIONS WITHOUT JUSTIFICATION, RESPONDS IN SONG EX "STOP WHATS THAT SOUND", "I DON'T WANNNNTTT NOOOO DEPAKOTE" "PUT THE SAMISH IN THE COCONUT SHOVE IT UP YOUR BUMBYBUMBY BUMMMM" I: INFORM PSYCHIATRIC NP, of pt behaviors, redirect as needed, pt encouraged to take medications, she also was talked to about being manic and no sleep for several day, R: pt took medications, cooperative in all care. Continue to encourage pt to take medications and break manic cycle, monitor for medication effectiveness. no SI/HI noted, pt is noted to talk to self throughout the day, p: Monitor all aspects of pt response of medications, monitor for side effects, update doctor or forestry adviser as needed.
[2019-11-05 20:00] VITALS: BP 151/67
--- NOTE | 2019-11-05 20:58 | NUR ---
HAPPY AND SINGING. NOT HYPERVERBAL YESTERDAY. COMPLIANT WITH ALL MEDICATIONS AFTER WE REVIEWED THEM. DANCED AND SANG TO HER ROOM.
--- NOTE | 2019-11-05 20:58 | NUR ---
HAPPY AND SINGING. NOT HYPERVERBAL YESTERDAY. COMPLIANT WITH ALL MEDICATIONS AFTER WE REVIEWED THEM. DANCED AND SANG TO HER ROOM.
--- NOTE | 2019-11-05 22:39 | NUR ---
RESTING WELL AT THIS TIME. MOVING SELF IN BED.
--- NOTE | 2019-11-06 02:12 | NUR ---
REMAINS AWAKE AT THIS TIME. INTERMITTENTLY IN CHAIR AND BED. CONTINUE TO MONITOR. 24 HR chart check completed.
--- NOTE | 2019-11-06 06:20 | NUR ---
SLEPT A BROKEN 5.5 HOURS. CLIENT UP IN DININGROOM. INTERMITTENTLY BREAKING INTO SONG
--- NOTE | 2019-11-06 07:22 | NUR ---
PHYSICAL THERAPY Patient seen this am for therapy visit and was sitting in activity room chair upon therapist arrival. Patient identified by name / and reports no new c/o's. OT assistant spa manager was also present for observation only this session as patient was very pleasant this morning and Independent with all transfers. Patient ambulates without AD, slow steady stephy, > 150'x 1, demonstrating no LOB. Patient able to side step and walk backwards 5'x 2 with caution. Patient returned to activity room chair at table awaiting breakfast, under [facility] staff Supervision. Will continue per POC as tolerated, total treatment time 16 minutes. Dayton Hatch, COST ENGINEER
--- NOTE | 2019-11-06 07:35 | NUR ---
OT NOTE Pt was seen this A.M. 1:1 for 15 minute OT session with DRAWER LINER and nursing staff present for observation only. Upon arrival pt was sitting upright in the dining tejeda. Pt identified by name and and had no complaints at this time. Sit to stand completed from chair level followed by functional mobility to the bathroom I. There she stood sink side while washing her hands and face I. Challenged pt's dynamic standing tolerance needed for increased I in self care tasks and functional transfers, pt was able to tolerate aprox 10 minutes at a time before sitting due to fatigue. Also challenged pt's dynamic standing balance while weight shifiting, crossing midline, and reaching over all planes and pt was able to maintain G- standing balance throughout. Pt was left sitting upright in the dining room for breakfast under [facility] staff supervision. Continue with rec D/C plan to return home with 02/01 supervision. CHUCHO Simental/Shaunna
--- NOTE | 2019-11-06 07:47 | NUR ---
Dr. Marshall notified of wound care recommendations.
[2019-11-06 07:48] VITALS: BP 108/60
--- NOTE | 2019-11-06 13:18 | NUR ---
Family meeting held via phone with pt's mother Cherelle Whittington. Cherelle stated that she has been dealing with her own health issues and was hospitalized. Cherelle reported that she and pt are very close. Rosa Maria has lived with her mother her entire life. Cherelle reports that pt's family is very close. Pt's brothers live nearby and are supportive. Rosa Maria's only sister Katey in 1978, and Cherelle believes that pt has never gotten over the loss of her sister. Discussed this further. Cherelle confirmed that pt is current with [facility] with a new provider who Cherelle is unsure of the name. Cherelle reports that when pt is doing well, pt attends ep[employer]opalian every Monday, never swears, is very mild-mannered, and loving toward Cherelle and her entire family.
--- NOTE | 2019-11-06 15:23 | NUR ---
Treatment Plan meeting was held via telephone with Dr. Chiu, DANIAL Lao RN, MOTION PICTURE CAMERAMAN-S and Director And Professor. Plan for discharge Next Week.
[2019-11-06 20:01] VITALS: BP 145/62
--- NOTE | 2019-11-06 23:53 | NUR ---
P-HYPERVERBAL I-REDIRECTION WITH 1:1 THERAPEUTIC INTERVENTIONS AND PRESENT REALITY. EDUCATE AND ENCOURAGE MEDICATION COMPLIANCE. R-PATIENT MEDICATION COMPLIANT AT HS. PATIENT PROVIDED NOURISHMENT AND FLUIDS AT HS. PATIENT WITH NO SUICIDAL OR HOMICIDAL IDEATIONS. PATIENT WITH NO DELUSIONS OR HALLUCINATIONS AT THIS TIME. PATIENT HYPERVERBAL AT TIMES DURING HS AND ISOLATING TO ROOM. P-CONTINUE TO ENCOURAGE MEDICATION COMPLIANCE, CONTINUE TO PRESENT REALITY, ENCOURAGE GROUP THERAPY WHILE AWAKE
--- NOTE | 2019-11-07 02:00 | NUR ---
PATIENT COMPLAINT OF BILATERAL LOWER EXTREMITY STIFFNESS AND PAIN. PATIENT MEDICATED WITH TYLENOL 650MG WITH SOMEWHAT EFFECTIVE RESULTS. PATIENT STATING "I FEEL BETTER BUT I STILL AM LIMPING". PATIENT AMBULATING IN ROOM WITHOUT ASSISTANCE AND STEADY GAIT
--- NOTE | 2019-11-07 04:03 | NUR ---
DR RYDER UPDATED ABOUT PATIENT COMPLAINT OF WATERY STOOLS. WAITING ON NEW ORDERS
--- NOTE | 2019-11-07 06:41 | NUR ---
Patient slept 0 hours throughout shift. Q 15 minute safety checks continued and maintained.
--- NOTE | 2019-11-07 07:00 | NUR ---
PHYSICAL THERAPY Patient seen this am for therapy visit and was sitting up on EOB upon therapist arrival. Patient identified by name / and was joined by OT assistant mechanic who was also present for observation only this session. Patient voices no new c/o's at this time and was Independent with all transfers. Patient ambulates without AD, ad genny throughout the [facility] wing, demonstrating no LOB and Good safety awareness. Patient able to walk backwards, side step, bend over to metal pickling equipment operator objects from floor and "dance". Patient completed all treatment without c/o and returned to activity room chair at table awaiting breakfast, under [facility] staff Supervision. Will consult with supervising therapist regarding possible d/c planning as patient is Independent with all activities. Dayton Hatch, TRUCK DESPATCHER
--- NOTE | 2019-11-07 07:15 | NUR ---
OT NOTE Prior to coming to the floor spoke with nurse Bermudez and reported that therapy was coming to the floor to treat this pt. Pt was seen this A.M. 1:1 for 20 minute OT session with SCENE SHIFTER and nursing staff present for observation only. Upon arrival pt was sitting upright on the EOB. Pt identified by name and and had no complaints at this time. While seated pt donned B socks and shirt MT. Pt then stood while completing IADL task of making her bed and fixing her blankets in the room I. Functional mobility was then completed to the bathroom where she completed toileting task, clothing management, and toilet hygiene I. After completing task without any verbal prompts for sequencing pt self initated proper hand hygiene at the sink and then completed hair care I. Challenged pt's dynamic standing balance while weight shifting, crossing midline, and reaching over all planes and pt was able to maintain G standing balance throughout. Overall pt tolerated aprox 15 minutes of activity before sitting due to fatigue. Pt was left sitting upright in the dining tejeda under [facility] staff supervision. Continue with rec D/C plan to return home with 02/01 supervision. CHUCHO Simental/Shaunna
[2019-11-07 08:00] VITALS: BP 140/66
--- NOTE | 2019-11-07 08:32 | NUR ---
OCCUPATIONAL THERAPY CO-SIGN I approve of the Occupational Therapy notes written above. Elizabeth Verde OTR/L
--- NOTE | 2019-11-07 08:33 | NUR ---
Pt has met stated goals and is (I) throughout U for ADLs and transfers. Pt to be d/c from occupational therapy services at this time. No further OT indicated. Thank you for referral. Elizabeth Louis OTR/L
--- NOTE | 2019-11-07 08:55 | NUR ---
PHYSICAL THERAPY CO-SIGN I approve of the Physical Therapy notes written above. JOSE J MCCRACKEN PT,DPT
--- NOTE | 2019-11-07 08:56 | NUR ---
PHYSICAL THERAPY Patient progressed well and met all stated goals for PT services. Patient is independent throughout [facility]. No further PT needs indicated. Thank you for this referral. Stephanie Scott,PT,DPT
--- NOTE | 2019-11-07 08:58 | NUR ---
rounded and updated on pt progress via telemedicine. Medication orders updated per .
--- NOTE | 2019-11-07 11:13 | NUR ---
Treatment Plan meeting was held via telephone with Dr. Chiu RN, PHONOGRAPH NEEDLE TIP MAKER-S and Marketing Traffic Coordinator. Plan for discharge Next Week. Pt. will return home with her Mother.
--- NOTE | 2019-11-07 12:16 | NUR ---
PT C/O NAUSEA, SPITTING UP CLEAR LIQUID. DR. LYMAN MADE AWARE, STATES SHE WILL ORDER ZOFRAN.
[2019-11-07 20:00] VITALS: BP 160/75
--- NOTE | 2019-11-08 00:46 | NUR ---
P-ISOLATIVE I-REDIRECTION WITH 1:1 THERAPEUTIC INTERVENTIONS AND PRESENT REALITY. EDUCATE AND ENCOURAGE MEDICATION COMPLIANCE. R-PATIENT MEDICATION COMPLIANT AT HS. PATIENT REFUSED NOURISHMENT AT HS BUT PROVIDED FLUIDS. PATIENT WITH NO SUICIDAL OR HOMICIDAL IDEATIONS. PATIENT WITH NO DELUSIONS OR HALLUCINATIONS AT THIS TIME. PATIENT ISOLATIVE IN ROOM THIS SHIFT. PATIENT WITH EMESIS X 1 AT HS. PATIENT WITH MEDIUM EMESIS, BROWN, LIQUID, AND FOOD CHUNKS THROUGHOUT. PATIENT MEDICATED WITH ZOFRAN FOR NAUSEA. ZOFRAN WITH EFFECTIVE RESULTS AT THIS TIME. P-CONTINUE TO ENCOURAGE MEDICATION COMPLIANCE, CONTINUE TO PRESENT REALITY, ENCOURAGE GROUP THERAPY WHILE AWAKE
--- NOTE | 2019-11-08 06:25 | NUR ---
Patient slept approx. 4.5 hours throughout shift with a few awakenings. Q 15 minute safety checks continued and maintained.
[2019-11-08 07:53] VITALS: BP 136/72
--- NOTE | 2019-11-08 08:00 | NUR ---
Patient in dining room eating breakfast with peers. Respirations easy and regular. Vital signs stable. No overt distress. Telehealth assessment by GARRETT Faust. Updates provided. MORALES ONEIL
--- NOTE | 2019-11-08 08:15 | NUR ---
Treatment Plan meeting was held via telephone with DANIAL Lao RN, SUPERVISORY HISTORIAN-S and Electrician Research. Plan for discharge Next Week. Pt. will return home with her Mother and Follow up care arranged.
--- NOTE | 2019-11-08 09:33 | NUR ---
DR MEDEIROS ON UNIT TO ASSESS PT, UPDATE PROVIDED.
--- NOTE | 2019-11-08 14:31 | NUR ---
GROUP THERAPY PT DECLINED TO ATTEND GROUP THIS AFTERNOON, CHOOSING TO REMAIN IN ROOM RESTING QUIETLY.
--- NOTE | 2019-11-08 14:32 | NUR ---
Spoke with pt's mother Cherelle Whittington and provided update. Cherelle stated that she has a completed Statement of Expert Evaluation of pt and Cherelle plans on pursuing guardianship. This has been delayed due to Cherelle having some medical issues.
[2019-11-08 20:00] VITALS: BP 154/72
--- NOTE | 2019-11-08 23:38 | NUR ---
P-ISOLATIVE I-REDIRECTION WITH 1:1 THERAPEUTIC INTERVENTIONS AND PRESENT REALITY. EDUCATE AND ENCOURAGE MEDICATION COMPLIANCE. R-PATIENT [id number] COMPLIANT AT HS. PATIENT REFUSED NOURISHMENT AT HS BUT PROVIDED FLUIDS. PATIENT WITH NO SUICIDAL OR HOMICIDAL IDEATIONS. PATIENT WITH NO DELUSIONS OR HALLUCINATIONS AT THIS TIME. PATIENT ISOLATIVE IN ROOM THIS SHIFT. PATIENT RESTING IN BED THROUGHOUT SHIFT P-CONTINUE TO ENCOURAGE MEDICATION COMPLIANCE, CONTINUE TO PRESENT REALITY, ENCOURAGE GROUP THERAPY WHILE AWAKE
--- NOTE | 2019-11-09 06:06 | NUR ---
PATIENT SLEPT 6-7 HOURS OF UNINTERRUPTED SLEEP THROUGHOUT SHIFT. Q 15 MINUTE CHECKS MAINTAINED. 24 HR chart check completed.
[2019-11-09 07:34] VITALS: BP 114/61
--- NOTE | 2019-11-09 08:42 | NUR ---
DR MEDEIROS ON UNIT TO ASSESS PT, UPDATE PROVIDED.
--- NOTE | 2019-11-09 15:12 | NUR ---
P: VISUAL HALLUCINATIONS. PATIENT YELLING OUT IN DINING ROOM. PATIENT STATED "I'M YELLING AT HER OUTSIDE" I: PATIENT REORIENTED TO REALITY AND REDIRECTED. R: EFFECTIVE. PATIENT IS ALERT AND ORIENTED TO PERSON, PLACE, TIME AND SITUATION. ABLE TO VOICE NEEDS. MOOD IS LABILE BUT LESS MANIC. NO LONGER HYPERVERBAL. WIIL SING AT TIMES. MEDICATION COMPLIANT. DENIES ANY HALLUCINATIONS, DELUSIONS, HI/SI OR PAIN. Q 15 MINUTE SAFETY CHECKS MAINTAINED. 1 PERSON ASSIST, VERBAL CUEING WITH ACTIVITIES OF DAILY LIVING, CONTINENT OF BOWEL AND BLADDER. SET UP FOR MEALS, INTAKES VARY WITH MUCH ENCOURAGEMENT. INTERACTIVE WITH STAFF AND PARTICIPATED IN GROUP SESSION. AMBULATORY WITH STEADY GAIT. P: CONTINUE TO MONITOR FOR HALLUCINATIONS, DELUSIONS AND MEDICATION COMPLIANCE. PROVIDE ONE ON ONE, REDIRECTION/REORIENTATION NEEDED.
[2019-11-09 20:03] VITALS: BP 138/76
--- NOTE | 2019-11-10 00:32 | NUR ---
P-FOI I-ASSESS ORIENTATION, MOOD, AND BEHAVIOR. PROVIDE 1:1 WITH THERAPEUTIC INTERVENTIONS. ENCOURAGE MEDICATION COMPLIANCE AND EDUCATE. MONITOR SLEEP. R-PATIENT ALERT AND ORIENTED X3 WITH CONFUSION. PT EUTHYMIC THIS HS, PLEASANT, INTERACTIVE. PT CONTINUES TO HAVE FOI WITH INTERMITTENT SINGING BUT IS NOTED TO BE LESS HYPERVERBAL. PT PREOCCUPIED WITH CALL LIGHT AT TIMES DESPITE NEEDS BEING MET, EASILY REDIRECTABLE. NO AGITATION NOTED. PT VOICES NO SI/HI, HALLUCINATIONS, OR DELUSIONS. NO NOTED RESPONDING TO INTERNAL STIMULI. MEDICATION COMPLIANT WITHOUT DIFFICULTY AFTER REVIEW. NO PHYSICAL COMPLAINTS VOICED. PT AMBULATORY WITH A STEADY GAIT, INDEPENDENT IN ADL'S, CONTINENT OF BOWEL AND BLADDER. NO DISTRESS NOTED. P-CONTINUE TO MONITOR MOOD AND BEHAVIORS. MAINTAIN Q 15 MIN CHECKS AND PRN FOR SAFETY.
--- NOTE | 2019-11-10 05:36 | NUR ---
24 HOUR CHART CHECK COMPLETED.
--- NOTE | 2019-11-10 06:00 | NUR ---
PATIENT OBSERVED ON Q 15 MIN CHECKS TO HAVE SLEPT APPROX 6 HOURS UNINTERRUPTED. NO DISTRESS NOTED.
[2019-11-10 07:41] VITALS: BP 124/70
--- NOTE | 2019-11-10 16:06 | NUR ---
Shift chart check completed.
--- NOTE | 2019-11-10 17:44 | NUR ---
P: TALKING TO UNSEEN OTHERS, ISOLATIVE TO ROOM, RESTLESS AND PACING BACK AND FORTH TO ROOM. I: ONE ON ONE FOR EMOTIONAL SUPPORT, REDIRECTION NEEDED. R: EFFECTIVE. PATIENT IS ALERT TO PERSON, PLACE, TIME AND SITUATION; ABLE TO VOICE NEEDS. MOOD IS LABILE, PLEASANT DEMEANOR. DENIES ANY HALLUCINATIONS, DELUSIONS, HI/SI OR PAIN. MEDICATION COMPLAINT. Q 15 MINUTE SAFETY CHECKS MAINTAINED. 1 PERSON ASSIST FOR CUEING WITH ACTIVITIES OF DAILY LIVING, CONTINENT OF BOWEL AND BLADDER, SET UP FOR MEALS, INTAKES VARY WITH MUCH ENCOURAGEMENT. INTERACTIVE WITH STAFF AND OTHER PATIENTS. PARTICIPATES IN GROUP SESSION. P: CONTINUE TO MONITOR FOR HALLUCINATIONS, DELUSIONS, MEDICATION COMPLIANCE AND MEAL INTAKE. PROVIDE ONE ON ONE FOR EMOTIONAL SUPPORT, REDIRECT, ENCOURAGE MEDICATION COMPLIANCE AND MEAL INTAKES.
[2019-11-10 20:04] VITALS: BP 126/64
--- NOTE | 2019-11-11 00:05 | NUR ---
P-FOI I-ASSESS ORIENTATION, MOOD, AND BEHAVIOR. PROVIDE 1:1 WITH THERAPEUTIC INTERVENTIONS. ENCOURAGE MEDICATION COMPLIANCE AND EDUCATE. MONITOR SLEEP. R-PATIENT ALERT AND ORIENTED X3 WITH CONFUSION. PT EUTHYMIC THIS HS, PLEASANT, INTERACTIVE, ISOLATIVE AT TIMES. PT CONTINUES TO HAVE FOI WITH INTERMITTENT SINGING BUT REMAINS LESS HYPERVERBAL. PT PREOCCUPIED WITH VARIOUS ITEMS (CUPS, WIPES, TISSUES) AND ATTEMPTS TO TERESA THEM IN ROOM, EASILY REDIRECTABLE. NO AGITATION NOTED. PT VOICES NO SI/HI, HALLUCINATIONS, OR DELUSIONS. NO NOTED RESPONDING TO INTERNAL STIMULI. MEDICATION COMPLIANT WITHOUT DIFFICULTY AFTER REVIEW. NO PHYSICAL COMPLAINTS VOICED. PT AMBULATORY WITH A STEADY GAIT, INDEPENDENT IN ADL'S, CONTINENT OF BOWEL AND BLADDER. NO DISTRESS NOTED. P-CONTINUE TO MONITOR MOOD AND BEHAVIORS. MAINTAIN Q 15 MIN CHECKS AND PRN FOR SAFETY.
--- NOTE | 2019-11-11 05:45 | NUR ---
PATIENT OBSERVED ON Q 15 MIN CHECKS TO HAVE SLEPT APPROX 3 HOURS UNINTERRUPTED. NO DISTRESS NOTED.
--- NOTE | 2019-11-11 05:53 | NUR ---
24 HOUR CHART CHECK COMPLETED.
--- NOTE | 2019-11-11 07:56 | NUR ---
Patient eating breakfast in dining room with peers. Respirations easy and regular. Vital signs stable. No overt distress. [facility] unit to see pt at this time, update given.
--- NOTE | 2019-11-11 08:00 | NUR ---
on unit to see pt at this time, update given.
[2019-11-11 08:01] VITALS: BP 120/68
--- NOTE | 2019-11-11 09:00 | NUR ---
Treatment Plan meeting was held via telephone with Dr. Chiu, DANIAL Lao, HELEN, CANOE BUILDER-S and Sales Attendant. Plan for discharge at the end of the week. Pt. will return home with her Mother.
--- NOTE | 2019-11-11 15:21 | NUR ---
SPoke with pt's mother Cherelle and provided update. Discussed pt phoning Cherelle over the weekend. Cherelle stated that she was thrilled that pt called her but that pt still is not quite herself. Cherelle believes that pt is still manic.
--- NOTE | 2019-11-11 15:54 | NUR ---
P: TALKING TO UNSEEN OTHERS, FLIGHT OF IDEAS, INAPPROPRIATE SINGING. I: ONE ON ONE FOR EMOTIONAL SUPPORT, REDIRECTION NEEDED. R: EFFECTIVE. PATIENT IS ALERT TO PERSON, PLACE, TIME AND SITUATION; ABLE TO VOICE NEEDS. MOOD IS STABLE, PLEASANT DEMEANOR. DENIES ANY HALLUCINATIONS, DELUSIONS, HI/SI OR PAIN. MEDICATION COMPLAINT. Q 15 MINUTE SAFETY CHECKS MAINTAINED. 1 PERSON ASSIST FOR CUEING WITH ACTIVITIES OF DAILY LIVING, CONTINENT OF BOWEL AND BLADDER, SET UP FOR MEALS, INTAKES VARY WITH MUCH ENCOURAGEMENT. INTERACTIVE WITH STAFF AND OTHER PATIENTS. PARTICIPATES IN GROUP SESSION. P: CONTINUE TO MONITOR FOR HALLUCINATIONS, DELUSIONS, MEDICATION COMPLIANCE AND MEAL INTAKE. PROVIDE ONE ON ONE FOR EMOTIONAL SUPPORT, REDIRECT, ENCOURAGE MEDICATION COMPLIANCE AND MEAL INTAKES.
[2019-11-11 20:16] VITALS: BP 134/57
--- NOTE | 2019-11-12 01:02 | NUR ---
P-FOI I-ASSESS ORIENTATION, MOOD, AND BEHAVIOR. PROVIDE 1:1 WITH THERAPEUTIC INTERVENTIONS. ENCOURAGE MEDICATION COMPLIANCE AND EDUCATE. MONITOR SLEEP. R-PATIENT ALERT AND ORIENTED X3 WITH CONFUSION. PT EUTHYMIC THIS HS, PLEASANT, INTERACTIVE. ATE HS SNACK AND WATCHED A MOVIE WITH PEERS. PT CONTINUES TO HAVE FOI WITH INTERMITTENT SINGING, HYPERVERBAL AT TIMES. PT EASILY REDIRECTABLE DURING TIMES OF YELLING OUT AND/OR CURSING, NO AGITATION NOTED. PT VOICES NO SI/HI, HALLUCINATIONS, OR DELUSIONS. NO NOTED RESPONDING TO INTERNAL STIMULI. MEDICATION COMPLIANT WITHOUT DIFFICULTY AFTER REVIEW. NO PHYSICAL COMPLAINTS VOICED. PT AMBULATORY WITH A STEADY GAIT, INDEPENDENT IN ADL'S, CONTINENT OF BOWEL AND BLADDER. NO DISTRESS NOTED. P-CONTINUE TO MONITOR MOOD AND BEHAVIORS. MAINTAIN Q 15 MIN CHECKS AND PRN FOR SAFETY.
--- NOTE | 2019-11-12 05:24 | NUR ---
24 HOUR CHART CHECK COMPLETED.
--- NOTE | 2019-11-12 05:44 | NUR ---
PATIENT OBSERVED ON Q 15 MIN CHECKS TO HAVE SLEPT APPROX 7 HOURS UNINTERRUPTED. NO SIGNS OR SYMPTOMS OF DISTRESS NOTED.
--- NOTE | 2019-11-12 07:28 | NUR ---
TOBARESA [id number] Please refer to the physician's history and physical for past medical history, comorbid conditions, and allergies. Diagnosis: SCHIZOEFFECTIVE DISORDER Scott Score: 22,LOW OR NO RISK WOUND DESCRIPTIONS: This nurse along with with Brittney Tang RN evaluated patient for skin impairments. Wound Number: 1 Location: Medial apsect of left lower extremity no open areas noted at time of assessment. No drainage noted at time of assessment Wound Number: 2 Location of the wound: lateral aspect of right lower extremity (right side) no open areas noted at time of asseessment. No drainage noted at time of assessment Wound Number: 3 Location of the wound: lateral aspect of right lower extremity (middle wound) no open areas noted at time of assessment. No draiange noted at time of assessment Wound Number: 4 Location: lateral apsect of right lower extremity (left wound) no open areas noted at time of assessment. No drainage noted at time of assessment Surface the patient is resting on: Proform SKIN PREVENTION RECOMMENDATION: 1. Pressure redistribution support surface as appropriate 2. Elevate heels 3. Remove boots/TEDS every shift and reapply 4. Head of bed 30 degrees as tolerated 5. Assess nutrition and hydration 6. Manage moisture 7. Avoid the use of containment devices while in bed 8. Use absorptive products on surfaces limit layers of linens on bed 9. Turn and reposition every 1-2 hours in bed and every 1 hour in chair as tolerated 10. Weight shifts every 15 minutes while up in chair 11. Offloading with pillows or device to keep heels elevated off bed 12. Monitor skin at least every shift 13. Inspect under medical devices twice a day WOUND TREATMENT RECOMMENDATIONS: D/C partial thickness guidelines Continue Heel raiser pro boots to bilateral feet while in bed. Continue Wheelcushion when oob for prevention Continue hydraguard to periarea and buttocks every shift and prn for soiling for prevention. Podiatry is already on consult
[2019-11-12 08:00] VITALS: BP 114/56
--- NOTE | 2019-11-12 08:00 | NUR ---
and on unit to see pt at this time, update given.
--- NOTE | 2019-11-12 08:44 | NUR ---
Dr. Aguayo notified of wound care recommendations
--- NOTE | 2019-11-12 09:52 | NUR ---
Treatment Plan meeting was held this a.m. via telephone with Dr. Chiu, DANIAL Lao RN and Classifications Officer Cc/Cm. Plan for discharge Next Week. Pt. will return home with her Mother and Follow up care arranged.
--- NOTE | 2019-11-12 14:07 | NUR ---
PRN Tylenol 650mg PO given at this time for c/o arthritis pain to her right knee, not rated on pain scale. Will monitor for effect.
--- NOTE | 2019-11-12 15:06 | NUR ---
Time spent with pt this afternoon. Pt spoke about the rings on her fingers and told this telegraphic typewriter repairer that there was a picture of a blonde ferraro in the one ring. Pt asked if this telegraphic typewriter repairer could see the ferraro and then acted surprised when this telegraphic typewriter repairer replied no. Pt spoke of her brother who is a truck driver salesperson and of her sister who . Pt was briefly tearful when she spoke of her sister. Observed pt being supportive of a female peer.
--- NOTE | 2019-11-12 15:20 | NUR ---
P:HYPERVERBAL AND DEMEANING. PT NEGATIVELY COMMENTING ON OTHER PATIENTS. I: PT REDIRECTED AND EXPLAINED IT IS NOT NICE TO SAY MEAN THINGS ABOUT OTHER PEOPLE WHO ARE NOT SPEAKING ABOUT HER. 1:1 PROVIDED FOR THERAPEUTIC COMMUNICATION. ENCOURAGED MEDICATION COMPLIANCE. MONITORED BEHAVIORS WITH Q15 MINUTE SAFETY CHECKS. R: PT CHANGED SUBJECT. EASILY REDIRECTED. MEDICATION COMPLIANT.NO FURTHER BEHAVIORS NOTED. P: CONTINUE TO REDIRECT WHEN NEEDED. ENCOURAGE PT TO SAY NICE THINGS ABOUT PEERS. PROVIDE 1:1 WHEN NEEDED. ENCOURAGE MEDICATION COMPLIANCE. CONTINUE TO MONITOR BEHAVIORS WITH Q15 MINUTE SAFETY CHECKS. FALL PRECAUTIONS MAINTAINED. SEE [facility] FLOWS[facility]ET FOR SPECIFIC MONITORING.
[2019-11-12 20:00] VITALS: BP 140/57
--- NOTE | 2019-11-12 22:13 | NUR ---
Patient alert and oriented x3 with confusion noted. Mood is calm,cooperative and pleasant. Patient having FOI with intermttent singing. Patient denies any hallucinations at this time. No overt s/s of any responding to internal stimuli noted. Patient compliant with HS medications without any difficulty. Provided emotional support. Redirected when needed and patient receptive. Plan to continue to encourage medication compliance. Also continue to offer emotional support and redirect when needed/appropriate. Will continue to monitor moods/behaviors. Q 15 minute safety checks continued and maintained. See [facility] for further documentation.
--- NOTE | 2019-11-13 00:10 | NUR ---
24 HR chart check completed.
--- NOTE | 2019-11-13 05:43 | NUR ---
Patient slept approx. 2 hours throughout shift. Q 15 minute safety checks continued and maintained.
[2019-11-13 07:38] VITALS: BP 140/75
--- NOTE | 2019-11-13 08:16 | NUR ---
DR. MEDEIROS ON UNIT TO ASSESS PATIENT.
--- NOTE | 2019-11-13 09:00 | NUR ---
Treatment Plan meeting was held via telephone with Dr. Chiu, DANIAL Lao RN, STONE POLISHER HAND-S and Shredding Machine Knife Changer in attendance. Plan for discharge End of the week or next week.
--- NOTE | 2019-11-13 14:01 | NUR ---
PATIENT C/O FEELING DIZZY. CO NURSE CHECKS VTIALS AND BLOOD SUGAR. BLOOD SUGAR 111. PATINT INSTRUCTED BY NURSE TO STAY SEATING IN CHAIR. MEDICATIONS REVIEW. UPON ENTERING ROOM PATIENT WAS FOUND IN SITTING ON FLOOR AND STATED I BUMP MY NECK. CUSHION CHAIR CLOSE TO PATIENT. ORTHO BP: LAYING 126/76, 84; SITTING 118/65, 74; STANDING 132/70 70. PATIENT ASSISTED TO BED STILL COMPLAINING OF BEING DIZZY AND HUNGRY. DR DAVEY NOTIFIED WITH NEW ORDERS. PATIENT OWN PERSON AND AWARE. CASTRO REINFORCING STEEL MACHINE OPERATOR NOTIFIED
--- NOTE | 2019-11-13 14:29 | NUR ---
PATIENT GETTING READY TO GO TO RADIOLOGY FOR HEAD AND NECK CT'S. UPON SITTING UP PATIENT HAD MEDIUM EMESIS. DR. DAVEY NOTIFIED.
--- NOTE | 2019-11-13 15:05 | NUR ---
Spoke with Tashia Sims CHARGE MANAGER via telephone. Pt. would benefit from Partial Hospitalization Program at Discharge and Pt. will require appointment to receive Monthly Injection post Discharge.
--- NOTE | 2019-11-13 18:34 | NUR ---
PATIENT IS ALERT TO PERSON, PLACE, TIME AND SITUATION; ABLE TO VOICE NEEDS. MOOD IS STABLE, PLEASANT DEMEANOR. DENIES ANY HALLUCINATIONS, DELUSIONS, HI/SI OR PAIN. MEDICATION COMPLAINT. Q 15 MINUTE SAFETY CHECKS MAINTAINED. 1 PERSON ASSIST FOR CUEING WITH ACTIVITIES OF DAILY LIVING, CONTINENT OF BOWEL AND BLADDER, SET UP FOR MEALS, INTAKES VARY WITH MUCH ENCOURAGEMENT. INTERACTIVE WITH STAFF AND OTHER PATIENTS. PARTICIPATES IN GROUP SESSION. CONTINUE TO MONITOR FOR HALLUCINATIONS, DELUSIONS . MEDICATION COMPLIANE AND MEAL INTAKE. PROVIDE ONE ON ONE FOR EMOTIONAL SUPPORT, REDIRECT, ENCOURAGE MEDICATION COMPLIANCE AND MEAL INTAKES.
[2019-11-13 20:00] VITALS: BP 142/61
--- NOTE | 2019-11-13 21:38 | NUR ---
Patient alert and oriented x3 with confusion noted. Mood is calm,cooperative and pleasant. Patient having less FOI with intermttent singing. Patient denies any hallucinations at this time. No overt s/s of any responding to internal stimuli noted. Patient compliant with HS medications without any difficulty. Provided emotional support. Redirected when needed and patient receptive. Plan to continue to encourage medication compliance. Also continue to offer emotional support and redirect when needed/appropriate. Will continue to monitor moods/behaviors. Q 15 minute safety checks continued and maintained. See [facility] for further documentation.
--- NOTE | 2019-11-14 00:21 | NUR ---
24 HR chart check completed.
--- NOTE | 2019-11-14 05:27 | NUR ---
Patient slept approx. 1 hour throughout shift. Q 15 minute safety checks continued and maintained.
[2019-11-14 07:48] VITALS: BP 124/64
--- NOTE | 2019-11-14 09:00 | NUR ---
Treatment Plan meeting was held via telephone with Dr. Chiu RN and Calculus Teacher. Plan for discharge Next Week. Pt. will return Home with her Mother and Follow with [facility] in [place].
--- NOTE | 2019-11-14 12:27 | NUR ---
THIS NURSE WAS SITTING AT THE NURSES STATION WHILE THE PT WAS IN THE QUIET ROOM USING THE TELEPHONE TO MAKE A PERSONAL CALL. PT WAS STANDING IN THE DOORWAY, WHEN SHE LOST HER BALANCE HITTING THE DOOR JAM AND SLIDING ONTO THE FLOOR. PT DID NOT HIT HER HEAD, NO S/S OF PAIN NOTED, ROM WNL. VS= [id number]%[id number]. DR DAVEY, NURSING FAST FOOD SERVICES MANAGER SERVANDO, [facility] DIRECTOR ANDER ALL UPDATED. MESSAGE LEFT FOR DR LOMBARDI TO RETURN CALL.
--- NOTE | 2019-11-14 12:42 | NUR ---
DR LOMBARDI RETURNED CALLED AND UPDATED ON PT FALL. NO NEW ORDERS AT THIS TIME.
--- NOTE | 2019-11-14 16:28 | NUR ---
PT NON-COMPLIANT WITH SAFETY MEASURES, SUCH USING A WHEELCHAIR AND CLIP ALARM. PROVIDED EDUCATION ON IMPORTANCE OF UTILIZING SAFETY MEASURES, ENCOURAGE COMPLIANCE PT COMPLIANT WITH MUCH ENCOURAGEMENT STAFF WILL CONTINUE TO ENCOURAGE COMPLIANCE WITH SAFETY MEASURE, PROVIDE EMOTIONAL SUPPORT AND 1:1 FOR PT TO VOICE FEELINGS, MONITOR PT BEHAVIORS ON Q15 MIN SAFETY CHECKS
--- NOTE | 2019-11-14 17:21 | NUR ---
PT NON-COMPLIANT WITH SAFETY MEASURES, REMOVED BODY ALARM AND ATTEMPTING TO TRANSFER SELF WITHOUT ASSISTANCE. PT EDUCATED ON NEED FOR SAFETY MEASURES.
--- NOTE | 2019-11-14 19:39 | NUR ---
24 HR chart check completed.
[2019-11-14 20:00] VITALS: BP 140/68; BP 149/68
--- NOTE | 2019-11-14 21:32 | NUR ---
PT HAS RESTED IN BED SINCE THE ONSET OF THE SHIFT. ALERT & ORIENTED TO PERSON, PLACE, TIME & SITUATON TO FOLLOW SAFETY FALL PRECAUTIONS. SHE HAS BEEN COMPLIANT THUS FAR. MOOD IS PLEASANT & STATED SHE "FEELS GOOD". SHE HAS BEEN REMINDED SEVERAL TIMES TO USE CALL [facility] FOR ANY ASSISTANCE NEEDED. ATE SNACK. COMPLAINT WITH MEDS.
--- NOTE | 2019-11-15 05:25 | NUR ---
PT HAS BEEN AWAKE THROUGHOUT MOST OF THE SHIFT SLEEPING APPROX 2 HOURS TOTAL. SHE HAS BEEN ASSISTED TO THE BATHROOM X 2. HAS BEEN REMINDED OF SAFETY PRECAUTIONS & FOR THE MOST PART HAS BEEN COMPLAINT. HOWEVER APPROX 0500 SHE WANTED TO GET OUT OF BED ON HER OWN WHILE STAFF WAS WITH ANOTHER PATIENT & WHEN REMINDED SHE CURSED BRIEFLY BUT REMAINED IN BED.
--- NOTE | 2019-11-15 07:26 | NUR ---
DR MEDEIROS ON UIT TO ASSESS PT, UPDATE PROVIDED.
[2019-11-15 07:32] VITALS: BP 119/87
--- NOTE | 2019-11-15 10:53 | NUR ---
AM GROUP PT WAS PRESENT FOR PAINTING AND CRAFTING, ACTIVELY PARTICIPATED.
--- NOTE | 2019-11-15 14:17 | NUR ---
P: PT HAS FLIGHT OF IDEAS, VISUAL HALLUCINATIONS STATING "THERE IS A MAN ON THE ROOF AND HIS PANTS WERE TIGHT." PT MANIC, TALKING NON-STOP. I: PROVIDE EMOTIONAL SUPPORT AND 1:1 FOR PT TO VOICE FEELINGS, ENCOURAGE MED COMPLIANCE AND PROVIDE MED EDUCATION, RE-ORIENT AND PRESENT REALITY. R: PT ALERT TO PERSON, PLACE AND TIME. PT MED COMPLIANT WITHOUT DIFFICULTY, MED EDUCATION PROVIDED. PT CALM, CONTINUES WITH FLIGHT OF IDEAS AND NON-STOP TALKING. PT CONTINUES TO EXPERIENCE VISUAL HALLUCINATIONS. PT UP TO A WHEELCHAIR, REQUIRING 1 STAFF ASSIST FOR TRANSFERS AND CARE D/T PT FEELING DIZZY. PT CONTINENT OF BOWEL AND BLADDER. P: MONITOR PT BEHAVIORS ON Q15 MIN SAFETY CHECKS, ENCOURAGE MED COMPLIANCE AND PROVIDE MED EDUCATION, ENCOURAGE GROUP PARTICIPATION AND SOCIALIZATION, RE-ORIENT AND PRESENT REALITY.
--- NOTE | 2019-11-15 19:28 | NUR ---
24 HR chart check completed.
[2019-11-15 19:53] VITALS: BP 130/70
--- NOTE | 2019-11-15 21:23 | NUR ---
P-FLIGHT OF IDEAS I-REMIND PT OF SAFETY PRECAUTIONS & TO USE CALL [facility] FOR ASSISTANCE, MAINTAIN FALL PRECAUTIONS, ADMINISTER MEDS, MONITOR SLEEP, R-PT COMPLIANT & SAT IN THE DINING ROOM IN A WHEELCHAIR. 1 STAFF ASSIST. ALERT & ORIENTED TO PERSON, PLACE, TIME & SITUATION. FLIGHT OF IDEAS PRESENT. MOOD IS PLEASANT & STATED, "I FEEL JUST FINE BABY. JUST FINE". ATE SNACK. COMPLAINT WITH MEDS. P-CONTINUE TO MONITOR
--- NOTE | 2019-11-16 05:33 | NUR ---
PT HAS RESTED IN BED & HAS SLEPT INTERMITTENTLY FOR APPRX 4- 4.5 HOURS. UP TO BATHROOM X 2. 1 WITH ASSIST & 1 WITHOUT. SHE HAS BEEN ATTENTION SEEKING & DISRUPTIVE TO THE UNIT WITH SOME BEHAVIORS. CLAPPING HER HANDS & TALKING LOUDLY & LAUGHING. SHE IS ALERT & ORIENTED X 4. HAS REQUIRED REDIRECTION & LAUGHS AT STAFF. WHEN FIRMLY REDIRECTLY SHE GETS QUIET & IS MORE CO-OPERATIVE. HAS BEEN NON COMPLIANT WITH FALL PRECAUTIONS GETTING OUT OF BED & WANTING TO COME OUT IN THE [place] WITH STAFF. INFORMED HER SHE CAN NOT HAVE THESE BEHAVIORS WHILE OTHER PATIENTS ARE SLEEPING. STATED, "I'M GOING TO SLEEP ALL DAY". FLIGHT OF IDEAS AT TIMES.
[2019-11-16 06:25] LABS: BASO % 0.4 % (0.0-1.0); EOS # 0.1 10*3/uL (0.0-0.4); EOS % 1.6 % (1.0-4.0); HEMATOCRIT 36.6 % (37.0-47.0); LYMPH # 2.9 10*3/uL (1.3-4.4); MEAN CELL VOLUME 85.3 fl (81.0-99.0); MEAN CORPUSCULAR HGB 26.6 pg (27.0-31.0); MEAN CORPUSCULAR HGB CONC 31.1 g/dl (33.0-37.0); MEAN PLATELET VOLUME 9.8 fl (9.6-12.3); MONO # 0.5 10*3/uL (0.1-1.0); MONO % 8.7 % (3.0-9.0); NEUT # 2.1 10*3/uL (2.3-7.9); NEUT % 37.1 % (47.0-73.0); PLATELET COUNT AUTOMATED 352 10*3/uL (130-400); RED BLOOD COUNT 4.29 10*6/uL (4.10-5.10); RED CELL DISTRI WIDTH 15.8 % (0-14.5); WHITE BLOOD COUNT 5.6 10*3/uL (4.8-10.8)
[2019-11-16 06:50] LABS: BUN 23 mg/dl (7-24); CHLORIDE 105 mmol/L (98-107); CREATININE 0.81 mg/dL (0.55-1.02); POTASSIUM 5.1 mmol/L (3.5-5.1); SODIUM 140 mmol/L (136-145)
[2019-11-16 07:35] VITALS: BP 105/62
--- NOTE | 2019-11-16 09:58 | NUR ---
DR MEDEIROS ON UNIT TO ASSESS PT, UPDATE PROVIDED.
--- NOTE | 2019-11-16 17:09 | NUR ---
P: PT MOOD IS LABILE. PT IS IRRITABLE AND INTRUSIVE/DISRUPTIVE WITH STAFF AND PEERS. PT IS RESTLESS AND DEMANDING. PT HAS PRESSURED SPEECH. I: PROVIDE EMOTIONAL SUPPORT AND 1:1 FOR PT TO VOICE FEELINGS, OFFER OPTIONS FOR MORE APPROPRIATE BEHAVIORS, OFFER DIVERSIONAL ACTIVITES, RE-ORIENT AND PRESENT REALITY R: PT ALERT TO PERSON, PLACE, TIME AND SITUATION. PT MED COMPLIANT WITHOUT DIFFICULTY, MED EDUCATION PROVIDED. PT REMAINS RESTLESS, IRRITABLE, INTRUSIVE/DISRUPTIVE AT TIMES, STATING "IM ACTING LIKE THIS BECAUSE I WANT TO GO HOME, I DON'T KNOW WHY I AM STUCK HERE". PT CONTINUES WITH PRESSURED SPEECH. NO HALLUCINATIONS OR DELUSIONS NOTED. PT DENIES ANY SUCIDIAL THOUGHTS. PT UP TO A WHEELCHAIR, REQUIRES 1 STAFF ASSIST FOR TRANSFERS AND CARE. PT CONTINENT OF BOWEL AND BLADDER. P: MONITOR PT BEHAVIORS ON Q15 MIN SAFETY CHECKS, ENCOURAGE MED COMPLIANCE AND PROVIDE MED EDUCATION, PROVIDE EMOTIONAL SUPPORT AND 1:1 FOR PT TO VOICE FEELINGS, RE-ORIENT AND PRESENT REALITY, CONTINUE TO OFFER PT OPTIONS FOR MORE APPROPRIATE BEHAVIORS, OFFER DIVERSIONAL ACTIVITIES.
--- NOTE | 2019-11-16 19:57 | NUR ---
24 HR chart check completed.
[2019-11-16 20:00] VITALS: BP 137/64
--- NOTE | 2019-11-16 21:09 | NUR ---
P-PRESSURED SPEECH, MILDLY ELATED I-REMIND PT OF SAFETY PRECAUTIONS & TO USE CALL [facility] FOR ASSISTANCE, MAINTAIN FALL PRECAUTIONS, ADMINISTER MEDS, MONITOR SLEEP, R-PT COMPLIANT & SAT IN THE DINING ROOM. HAS MOVED INDEPENDENTLY VIA WHEELCHAIR. ALERT & ORIENTED TO PERSON, PLACE, TIME & SITUATION. MOOD IS PLEASANT & MILDLY ELATED AT TIMES WITH PRESSURED SPEECH. HAS BEEN CO-OPERATIVE THUS FAR. STATED UNDERSTANDING WHEN REMINDED OF FALL PRECAUTIONS. COMPLAINT WITH MEDS. ATE SNACK. P-CONTINUE TO MONITOR
--- NOTE | 2019-11-17 06:18 | NUR ---
PT HAS SLEPT FROM [id number] -2820. UP TO THE BATHROOM X2. RESTED IN BED THE REST OF THE SHIFT. MINIMAL REDIRECTION. MORE CO-OPERATIVE.
[2019-11-17 07:43] VITALS: BP 107/57
--- NOTE | 2019-11-17 08:00 | NUR ---
DR. MEDEIROS ON UNIT TO ASSESS PATIENT.
--- NOTE | 2019-11-17 15:20 | NUR ---
Shift chart check completed.
--- NOTE | 2019-11-17 15:35 | NUR ---
PATIENT IS ALERT TO PERSON, PLACE, TIME AND SITUATION; ABLE TO VOICE NEEDS. MOOD IS STABLE, PLEASANT DEMEANOR. DENIES ANY HALLUCINATIONS, DELUSIONS, HI/SI OR PAIN. MEDICATION COMPLAINT. Q 15 MINUTE SAFETY CHECKS MAINTAINED. 1 PERSON ASSIST FOR CUEING WITH ACTIVITIES OF DAILY LIVING, CONTINENT OF BOWEL AND BLADDER, SET UP FOR MEALS, INTAKES VARY WITH MUCH ENCOURAGEMENT. PERSONAL ALARM AND FALL SAFETY PRECAUTIONS IN PLACE. INTERACTIVE WITH STAFF AND OTHER PATIENTS. PARTICIPATES IN GROUP SESSION. CONTINUE TO MONITOR FOR HALLUCINATIONS, DELUSIONS . MEDICATION COMPLIANE AND MEAL INTAKE. PROVIDE ONE ON ONE FOR EMOTIONAL SUPPORT, REDIRECT, ENCOURAGE MEDICATION COMPLIANCE AND MEAL INTAKES.
[2019-11-17 19:50] VITALS: BP 149/64
--- NOTE | 2019-11-18 01:23 | NUR ---
P-FOI I-ASSESS ORIENTATION, MOOD, AND BEHAVIOR. PROVIDE 1:1 WITH THERAPEUTIC INTERVENTIONS. ENCOURAGE MEDICATION COMPLIANCE AND EDUCATE. MONITOR SLEEP. R-PATIENT ALERT AND ORIENTED X3 WITH CONFUSION. PT EUTHYMIC THIS HS, PLEASANT, INTERACTIVE, ISOLATIVE AT TIMES. PT CONTINUES TO HAVE FOI WITH INTERMITTENT SINGING BUT SPEECH REMAINS LESS HYPERVERBAL, RAPID. NO AGITATION NOTED. PT VOICES NO SI/HI, HALLUCINATIONS, OR DELUSIONS. NO NOTED RESPONDING TO INTERNAL STIMULI. MEDICATION COMPLIANT WITHOUT DIFFICULTY AFTER REVIEW. NO PHYSICAL COMPLAINTS VOICED. PT STAND BY ASSIST IN ADL'S, CONTINENT OF BOWEL AND BLADDER, FALL PRECAUTIONS CONTINUED. NO DISTRESS NOTED. P-CONTINUE TO MONITOR MOOD AND BEHAVIORS. MAINTAIN Q 15 MIN CHECKS AND PRN FOR SAFETY.
--- NOTE | 2019-11-18 06:08 | NUR ---
PATIENT OBSERVED ON Q 15 MIN CHECKS TO HAVE SLEPT APPROX 6 HOURS WITH X2 BRIEF AWAKEINGS TO USE THE RESTROOM WITH ASSISTANCE. NO SIGNS OR SYMPTOMS OF DISTRESS NOTED.
[2019-11-18 07:33] VITALS: BP 122/64
--- NOTE | 2019-11-18 07:40 | NUR ---
DR. MEDEIROS ON UNIT TO ASSESS PATIENT.
--- NOTE | 2019-11-18 14:28 | NUR ---
PATIENT IS ALERT TO PERSON, PLACE, TIME AND SITUATION; ABLE TO VOICE NEEDS. MOOD IS STABLE, PLEASANT DEMEANOR. DENIES ANY HALLUCINATIONS, DELUSIONS, HI/SI OR PAIN. MEDICATION COMPLAINT. Q 15 MINUTE SAFETY CHECKS MAINTAINED. 1 PERSON ASSIST FOR CUEING WITH ACTIVITIES OF DAILY LIVING, CONTINENT OF BOWEL AND BLADDER, SET UP FOR MEALS, INTAKES VARY WITH MUCH ENCOURAGEMENT. PERSONAL ALARM AND FALL SAFETY PRECAUTIONS IN PLACE. NON-COMPLAINT WITH FALL PRECAUTIONS, ONE ON ONE PROVIDED. INTERACTIVE WITH STAFF AND OTHER PATIENTS. PARTICIPATES IN GROUP SESSION. CONTINUE TO MONITOR FOR HALLUCINATIONS, DELUSIONS. MEDICATION COMPLIANE AND MEAL INTAKE. PROVIDE ONE ON ONE FOR EMOTIONAL SUPPORT, REDIRECT, ENCOURAGE MEDICATION COMPLIANCE AND MEAL INTAKES.
--- NOTE | 2019-11-18 14:41 | NUR ---
Pt was pleasant with this scientific technical writer earlier today during conversation. Pt spoke of her concern for her aunt who is ill. Pt was appropriate in conversation voicing no hallucinations.
--- NOTE | 2019-11-18 18:35 | NUR ---
Shift chart check completed.
[2019-11-18 19:29] VITALS: BP 118/59
--- NOTE | 2019-11-19 02:55 | NUR ---
P-FOI I-ASSESS ORIENTATION, MOOD, AND BEHAVIOR. PROVIDE 1:1 WITH THERAPEUTIC INTERVENTIONS. ENCOURAGE MEDICATION COMPLIANCE AND EDUCATE. MONITOR SLEEP. R-PATIENT ALERT AND ORIENTED X3 WITH CONFUSION. PT EUTHYMIC THIS HS, PLEASANT INTERACTIVE. PT CONTINUES TO HAVE FOI WITH INTERMITTENT SINGING BUT SPEECH REMAINS LESS HYPERVERBAL. NO AGITATION NOTED. PT VOICES NO SI/HI, HALLUCINATIONS, OR DELUSIONS. NO NOTED RESPONDING TO INTERNAL STIMULI. MEDICATION COMPLIANT WITHOUT DIFFICULTY AFTER REVIEW. NO PHYSICAL COMPLAINTS VOICED. PT STAND BY ASSIST IN ADL'S, CONTINENT OF BOWEL AND BLADDER, FALL PRECAUTIONS CONTINUED. NO DISTRESS NOTED. P-CONTINUE TO MONITOR MOOD AND BEHAVIORS. MAINTAIN Q 15 MIN CHECKS AND PRN FOR SAFETY.
--- NOTE | 2019-11-19 05:14 | NUR ---
24 HOUR CHART CHECK COMPLETED.
--- NOTE | 2019-11-19 05:52 | NUR ---
PATIENT OBSERVED ON Q 15 CHECKS TO HAVE SLEPT APPROX 2 HOURS INTERRUPTED. PT REQUIRES FREQUENT REMINDERS OF FALL PRECAUTIONS DUE TO NONCOMPLIANCE, BECOMES ARGUMENTATIVE WITH REDIRECTION. WILL MONITOR FOR ESCULATING BEHAVIORS, NO DISTRESS NOTED.
--- NOTE | 2019-11-19 07:43 | NUR ---
DR MEDEIROS ON UNIT TO ASSESS PT, UPDATE PROVIDED.
[2019-11-19 07:47] VITALS: BP 114/87
--- NOTE | 2019-11-19 07:55 | NUR ---
Patient eating breakfast in dining room with peers. Respirations easy and regular. Vital signs stable. No overt distress. MELITA HODGES
--- NOTE | 2019-11-19 14:52 | NUR ---
Pt pleasant with this handbook writer today. Discussed pt's discharge needs. Pt stated that she is willing to go IOP program at [facility]. Discussed pt returning home with her mother. Pt spoke of what she is looking forward to once at home. Pt was appropriate in conversation. Phoned pt's mother Cherelle and informed her that pt is discharging tomorrow.
--- NOTE | 2019-11-19 15:45 | NUR ---
No adverse moods or behaviors this shift. Pt is alert and oriented, resps easy and even on room air. Mood stable, elated at times. Pt continues with rapid speech, FOI and intermittent singing. Pt is pleasant and cooperative. Medication compliant without difficulty. Pt denies SI/HI, intent or plan. Pt denies hallucinations, no response to internal stimuli noted. No paranoia or delusions noted. No distress noted. Plan to continue current treatment.
--- NOTE | 2019-11-19 15:50 | NUR ---
GROUP B PT ATTENDED GROUP THERAPY AND PARTICIPATED BY WORKING ON A CRAFT AND LISTENING TO MUSIC. PT WAS HYPERVERBAL WHEN NOT SINGING ALONG. PT EXPRESSED NO DELUSIONS OR HALLUCINATIONS WHILE IN GROUP.
[2019-11-19 19:58] VITALS: BP 143/70
--- NOTE | 2019-11-19 20:11 | NUR ---
24 HR chart check completed.
--- NOTE | 2019-11-19 22:39 | NUR ---
MOOD IS STABLE. PT PLEASANT. ALERT & ORIENTED PERSON, PLACE , TIME & SOMEWHAT SITUATION. SPEECH IS PRESSURED WITH FLIGHT OF IDEAS. PT DID RECEIVE A PHONE CALL & SPOKE WITH HER AUNT ZEYAD. PT WAS DISSAPOINTED THAT SHE DID NOT RECEIVE A PHONE CALL FROM HER BROTHER SUDARSHAN. STATED SHE WILL HAVE TO TALK TO WHIT IN THE MORNING. MOVES ABOUT VIA WHEELCHAIR. INDEPENDENTLY TOILETS HERSELF. ATE SNACK. COMPLIANT WITH MEDS
--- NOTE | 2019-11-20 05:34 | NUR ---
PT ONLY SLEPT FROM 2300- 0030. UP & DOWN THROUGHOUT THE NIGHT.
--- NOTE | 2019-11-20 07:43 | NUR ---
Patient eating breakfast in dining room with peers. Feeding self. Respirations easy and regular. Vital signs stable. No overt distress. MELITA HODGES [id number] on unit to see pt at this time, update given.
[2019-11-20 07:51] VITALS: BP 118/58
[2019-11-20] MEDS ORDERED: CARBAMAZEPINE200 MG PO (08:50)
[2019-11-20] MEDS ORDERED: INVEGA SUSTENN156 MG IM (08:50)
[2019-11-20] MEDS ORDERED: MIRTAZAPINE15 M2 PO (08:50)
[2019-11-20] MEDS ORDERED: OLANZAPINE10 MG PO (08:50)
[2019-11-20] MEDS ORDERED: TRIHEXYPHENIDYL2 M3 PO (08:50)
--- NOTE | 2019-11-20 09:30 | NUR ---
Treatment Plan meeting was held with Dr. Chiu on the Telephone, DANIAL Lao, RN, AT, AUTOBODY TECHNICIAN-S and Computer Lab Assistant in attendance. Plan for discharge today with return home. Follow Up appointments scheduled with [facility] 11/25/2019 9:30 a.m. for Mental Health Follow Up, 12/09/19 10:30 a.m. for Medication Management at [facility] with Lo Carrera, 12/03/[address] Dickens for Primary Care follow up. Reinforced that she would need to fast for this appointment for Blood Work. [facility] with Call patient to set up appointment. Transportation provided with [employer] to transport with citrus picker time between 12:15 and 2:58 through Pt. Pwinty.
--- NOTE | 2019-11-20 11:28 | NUR ---
No adverse moods or behaviors this shift. Pt is alert and oriented, resps easy and even on room air. Mood stable, euthymic. Pt continues with rapid speech, FOI and intermittent singing. Pt is very pleasant and cooperative, pt is looking forward to going home today. Medication compliant without difficulty. Pt denies SI/HI, intent or plan. Pt denies hallucinations, no response to internal stimuli noted. No paranoia or delusions noted. No distress noted. Plan to continue current treatment.
--- NOTE | 2019-11-20 11:41 | NUR ---
AM GROUP PT ATTENDED MORNING GROUP THERAPY AND PARTICIPATED IN ALL ACTIVITIES. PT WAS LESS HYPERVERBAL AND ON TASK. PT EXPRESSED NO A V HALLUCINATIONS WHILE IN GROUP.
--- NOTE | 2019-11-20 12:22 | NUR ---
Pt discharged at this time to home via [facility] provided transport. All personal belongings were sent with the pt including lock box items. Discharge instructions reviewed with pt prior to discharge with pt's stated understanding of all. Pt left the unit in stable condition at 1222 escorted by [facility] staff.
--- NOTE | 2019-11-20 13:34 | NUR ---
Met with pt this AM prior to pt's discharge. Pt was pleasant and pleased that she was being discharged. Discussed discharge plan and follow-ups. Pt was appropriate in conversation. No delusions or hallucinations were voiced by pt.
--- NOTE | 2019-11-20 13:36 | NUR ---
Patient discharged today to home with her mother. Follow-up was scheduled with [facility]. A referral was also made to the IOP program at [facility]. While at [facility], pt's nickolas lessened and her delusions resolved. Pt participated in programming. Pt was pleasant and cooperative at discharge.
== END 2019-11-20 12:21 | disposition home or self-care (01) | DRG 750 ==
LOC: 3N 21:54
PROVIDERS: Internal Medicine; ADMIT Psychiatry & Neurology Psychiatry
DX: F25.0 Schizoaffective disorder, bipolar type (principal); I10 Essential (primary) hypertension; F41.9 Anxiety disorder, unspecified; R00.0 Tachycardia, unspecified; E78.5 Hyperlipidemia, unspecified; G51.0 Bell's palsy; E11.51 Type 2 diabetes mellitus with diabetic peripheral angiopathy without gangrene; G56.00 Carpal tunnel syndrome, unspecified upper limb; S81.802A Unspecified open wound, left lower leg, initial encounter; S81.801A Unspecified open wound, right lower leg, initial encounter; X58.XXXA Exposure to other specified factors, initial encounter; Y93.89 Activity, other specified; Y92.89 Other specified places as the place of occurrence of the external cause; Y99.8 Other external cause status; Z98.49 Cataract extraction status, unspecified eye; Z82.49 Family history of ischemic heart disease and other diseases of the circulatory system; Z90.710 Acquired absence of both cervix and uterus; Z88.8 Allergy status to other drugs, medicaments and biological substances; Z79.899 Other long term (current) drug therapy; Z79.4 Long term (current) use of insulin